=== PATIENT | female | born 1930 | race Caucasian/White ===

== ENCOUNTER 2018-03-11 16:29 | Inpatient (IN) | payer MEDICARE, BC ==
[2018-03-11] MEDS ORDERED: NITROGLYCERIN OINT 1 INCH/GM PACKET TOPICAL STA (17:14)
[2018-03-11] MEDS ORDERED: ASPIRIN 81 MG PO STA (17:14)
--- NOTE | 2018-03-11 17:17 | ED ---
General Adult HPI - General Chief complaint: Chest Pain Stated complaint: Chest Pain Time Seen by Provider: 03/11/18 16:35 Source: patient, RN notes reviewed Mode of arrival: ambulatory Limitations: no limitations - History of Present Illness Initial comments: This is an 87-year-old female who presents emergency department with past medical history significant for hypertension and bypass surgery. Patient states she started having chest pain running today it radiated down into her right arm and then she became short of breath. Patient states the discomfort continues. Patient denies any injury or trauma. Patient denies any recent fever chills or cough. Patient denies any sweating. Patient denies any nausea. Patient denies abdominal pain. Patient denies headache patient denies numbness weakness. Patient denies lightheadedness or dizziness. Patient denies any increased swelling in her legs or calf tenderness. - Related Data Allergies Allergy/AdvReac Type Severity Reaction Status Date / Time No Known Allergies Allergy Verified 03/11/18 16:37 Review of Systems ROS Statement: Those systems with pertinent positive or pertinent negative responses have been documented in the HPI. ROS Other: All systems not noted in ROS Statement are negative. Past Medical History Past Medical History: Chest Pain / Angina, Hyperlipidemia, Hypertension History of Any Multi-Drug Resistant Organisms: None Reported Past Surgical History: Coronary Bypass/CABG Past Psychological History: No Psychological Hx Reported Smoking Status: Never smoker Past Alcohol Use History: None Reported Past Drug Use History: None Reported General Exam - General Exam Comments Initial Comments: GENERAL: Patient is well-developed and well-nourished. Patient is nontoxic and well- hydrated and is in mild distress. ENT: Neck is soft and supple. No significant lymphadenopathy is noted. Oropharynx is clear. Moist mucous membranes. EYES: The sclera were anicteric and conjunctiva were pink and moist. Extraocular movements were intact and pupils were equal round and reactive to light. Eyelids were unremarkable. PULMONARY: Unlabored respirations. Good breath sounds bilaterally. No audible rales rhonchi or wheezing was noted. CARDIOVASCULAR: There is a regular rate and rhythm without any murmurs gallops or rubs. ABDOMEN: Soft and nontender with normal bowel sounds. No palpable organomegaly was noted. There is no palpable pulsatile mass. SKIN: Skin is clear with no lesions or rashes and otherwise unremarkable. NEUROLOGIC: Patient is alert and oriented x3. Cranial nerves II through XII are grossly intact. Motor and sensory are also intact. Normal speech, volume and content. Symmetrical smile. MUSCULOSKELETAL: Normal extremities with adequate strength and full range of motion. No lower extremity swelling or edema. No calf tenderness. LYMPHATICS: No significant lymphadenopathy is noted PSYCHIATRIC: Normal psychiatric evaluation. Normal interpersonal interactions appears functionally intact in deals appropriately with others. No signs of depression. No signs of anxiety. Limitations: no limitations Course Vital Signs 03/11/18 16:34 Temperature 98.3 F Pulse Rate 86 Respiratory 18 Rate Blood Pressure 194/86 O2 Sat by Pulse 95 Oximetry Medical Decision Making - Medical Decision Making EKG shows a sinus rhythm at 67 bpm [place] interval is 216 QRS is under QT intervals 454 QTC is 479. Patient's EKG shows Q waves in inferior leads II, III, and F aVF. Chest x-ray showed no acute abnormalities. I spoke with Dr. Haddad he agreed to admit the patient admitted the patient I started the patient on heparin. I wrote admitting orders and consult cardiology continued heparin and aspirin Nitropaste on the floor. - Lab Data Result diagrams: 03/11/18 16:53 03/11/18 16:53 Lab Results 03/11/18 03/11/18 03/11/18 Range/Units 16:53 16:53 16:53 WBC 8.8 (3.8-10.6) k/uL RBC 5.18 (3.80-5.40) m/uL Hgb 15.4 (11.4-16.0) gm/dL Hct 47.8 H (34.0-46.0) % MCV 92.2 (80.0-100.0) fL MCH 29.7 (25.0-35.0) pg MCHC 32.2 (31.0-37.0) g/dL RDW 13.4 (11.5-15.5) % Plt Count 673 H (150-450) k/uL Neutrophils % 76 % Lymphocytes % 10 % Monocytes % 8 % Eosinophils % 2 % Basophils % 1 % Neutrophils # 6.7 (1.3-7.7) k/uL Lymphocytes # 0.9 L (1.0-4.8) k/uL Monocytes # 0.7 (0-1.0) k/uL Eosinophils # 0.2 (0-0.7) k/uL Basophils # 0.1 (0-0.2) k/uL PT (9.0-12.0) sec INR (<1.2) APTT (22.0-30.0) sec Sodium 143 (137-145) mmol/L Potassium 4.7 (3.5-5.1) mmol/L Chloride 107 (98-107) mmol/L Carbon Dioxide 22 (22-30) mmol/L Anion Gap 14 mmol/L BUN 20 H (7-17) mg/dL Creatinine 0.78 (0.52-1.04) mg/dL Est GFR (CKD-EPI)AfAm 81 (>60 ml/min/1.73 sqM) Est GFR (CKD-EPI)NonAf 70 (>60 ml/min/1.73 sqM) Glucose 163 H (74-99) mg/dL Calcium 9.8 (8.4-10.2) mg/dL Magnesium 1.8 (1.6-2.3) mg/dL Total Bilirubin 0.5 (0.2-1.3) mg/dL AST 25 (14-36) U/L ALT 29 (9-52) U/L Alkaline Phosphatase 98 (38-126) U/L Total Creatine Kinase 74 (30-135) U/L CK-MB (CK-2) 2.1 (0.0-2.4) ng/mL CK-MB (CK-2) Rel Index 2.8 Troponin I 0.067 H* (0.000-0.034) ng/mL Total Protein 7.1 (6.3-8.2) g/dL Albumin 4.3 (3.5-5.0) g/dL 03/11/18 Range/Units 16:53 WBC (3.8-10.6) k/uL RBC (3.80-5.40) m/uL Hgb (11.4-16.0) gm/dL Hct (34.0-46.0) % MCV (80.0-100.0) fL MCH (25.0-35.0) pg MCHC (31.0-37.0) g/dL RDW (11.5-15.5) % Plt Count (150-450) k/uL Neutrophils % % Lymphocytes % % Monocytes % % Eosinophils % % Basophils % % Neutrophils # (1.3-7.7) k/uL Lymphocytes # (1.0-4.8) k/uL Monocytes # (0-1.0) k/uL Eosinophils # (0-0.7) k/uL Basophils # (0-0.2) k/uL PT 10.9 (9.0-12.0) sec INR 1.1 (<1.2) APTT 25.4 (22.0-30.0) sec Sodium (137-145) mmol/L Potassium (3.5-5.1) mmol/L Chloride (98-107) mmol/L Carbon Dioxide (22-30) mmol/L Anion Gap mmol/L BUN (7-17) mg/dL Creatinine (0.52-1.04) mg/dL Est GFR (CKD-EPI)AfAm (>60 ml/min/1.73 sqM) Est GFR (CKD-EPI)NonAf (>60 ml/min/1.73 sqM) Glucose (74-99) mg/dL Calcium (8.4-10.2) mg/dL Magnesium (1.6-2.3) mg/dL Total Bilirubin (0.2-1.3) mg/dL AST (14-36) U/L ALT (9-52) U/L Alkaline Phosphatase (38-126) U/L Total Creatine Kinase (30-135) U/L CK-MB (CK-2) (0.0-2.4) ng/mL CK-MB (CK-2) Rel Index Troponin I (0.000-0.034) ng/mL Total Protein (6.3-8.2) g/dL Albumin (3.5-5.0) g/dL Disposition Clinical Impression: Unstable angina pectoris Disposition: ADMITTED IP TO THIS HOSP Referrals: Kirk Haddad MD [Primary Care Provider] - 1-2 days Time of Disposition: 18:44
[2018-03-11 17:25] LABS: Basophils # (A) 0.1 k/uL (0-0.2); Basophils % (A) 1 %; Eosinophils # (A) 0.2 k/uL (0-0.7); Eosinophils % (A) 2 %; HCT 47.8 % (34.0-46.0); HGB 15.4 gm/dL (11.4-16.0); Lymphocytes # (A) 0.9 k/uL (1.0-4.8); Lymphocytes % (A) 10 %; MCH 29.7 pg (25.0-35.0); MCHC 32.2 g/dL (31.0-37.0); MCV 92.2 fL (80.0-100.0); Mean Platelet Volume 8.1; Monocytes # (A) 0.7 k/uL (0-1.0); Monocytes % (A) 8 %; Neutrophils # (A) 6.7 k/uL (1.3-7.7); Neutrophils % (A) 76 %; Platelet Count 673 k/uL (150-450); RBC 5.18 m/uL (3.80-5.40); RDW 13.4 % (11.5-15.5); WBC 8.8 k/uL (3.8-10.6)
[2018-03-11 17:32] LABS: INR 1.1 (<1.2); Partial Thromboplastin Time 25.4 sec (22.0-30.0); Prothrombin Time 10.9 sec (9.0-12.0)
[2018-03-11 17:34] LABS: Albumin 4.3 g/dL (3.5-5.0); Calcium 9.8 mg/dL (8.4-10.2); Magnesium 1.8 mg/dL (1.6-2.3); Potassium 4.7 mmol/L (3.5-5.1); Total Bilirubin 0.5 mg/dL (0.2-1.3); Total Protein 7.1 g/dL (6.3-8.2)
[2018-03-11 17:51] LABS: Creatine Kinase MB 2.1 ng/mL (0.0-2.4)
[2018-03-11 18:03] LABS: Troponin I 0.067 ng/mL (0.000-0.034)
--- NOTE | 2018-03-11 18:10 | XR ---
EXAMINATION: XR chest 2V DATE AND TIME: 03/11/2018 5:39 PM ORDERING PROVIDER: Sid Peacock MD CLINICAL INDICATION: Chest Pain TECHNIQUE: Frontal and lateral COMPARISON: 08/25/2013 DESCRIPTION: Sternal sutures and mediastinal clips are noted. Moderately enlarged cardiac silhouette, which appears to have increased in the five-year interval. There is moderate obscuration of the pulmonary vasculature by a fine reticular pattern of increased d ensity asymmetrically throughout the lungs. There is no consolidative opacity or silhouetting of the pleural reflections to suggest prominent ate lectasis or focal pneumonia. Pleural spaces are negative. No acute skeletal or soft tissue findings are evident. IMPRESSION: Moderate interstitial phase pulmonary edema, presumably cardiogenic etiology. Moderately enlarged car diac silhouette, having increased in size in the five-year interim.
[2018-03-11] MEDS ORDERED: HEPARIN SODIUM,PORCINE 10,000 UNIT/ML 1 ML VIAL IV ONE (18:42)
[2018-03-11] MEDS ORDERED: NITROGLYCERIN SL TABS 0.4 MG TAB SUBLINGUAL PRN (18:44)
[2018-03-11] MEDS: HEPARIN SODIUM,PORCINE/D5W PMX 25,000 UNIT in DEXTROSE/WATER 1 500ML.BAG IV SCH (19:13)
[2018-03-11 19:52] VITALS: BMI 25.0
[2018-03-11] MEDS ORDERED: ASPIRIN 81 MG PO SCH (21:00)
[2018-03-11] MEDS: METOPROLOL TARTRATE 12.5 MG TAB PO SCH (21:31)
[2018-03-11] MEDS: SENNOSIDES 8.6 MG TAB PO SCH (21:32)
[2018-03-11] MEDS: ATORVASTATIN 40 MG TAB PO SCH (21:32)
[2018-03-11] MEDS: NITROGLYCERIN OINT 1 INCH/GM PACKET TOPICAL SCH (23:38)
[2018-03-12 00:27] LABS: Creatine Kinase MB 5.7 ng/mL (0.0-2.4); Troponin I 1.19 ng/mL (0.000-0.034)
[2018-03-12] MEDS: NITROGLYCERIN OINT 1 INCH/GM PACKET TOPICAL SCH ×4 (05:01→23:30)
[2018-03-12 05:24] LABS: Cholesterol 147 mg/dL (<200); HDL Cholesterol 42 mg/dL (40-60); LDL Cholesterol,Calculated 90 mg/dL (0-99); Triglycerides 74 mg/dL (<150)
[2018-03-12 05:33] LABS: Creatine Kinase MB 6.8 ng/mL (0.0-2.4); Troponin I 1.26 ng/mL (0.000-0.034)
--- NOTE | 2018-03-12 08:10 | P.CRDCN ---
History of Present Illness Consult date: 03/12/18 Requesting physician: Kirk Haddad Consult reason: non-Q-wave RI Chief complaint: Chest pain History of present illness: This is a pleasant 87-year-old female who follows regularly with Dr. Kayla Solitario in the office. She has a known history of coronary artery disease with prior bypass surgery in 2006, subsequent to that she had a heart cath performed in 2011 which revealed a circumflex occlusion, SVG to the diagonal OM were okay, SVG to the PLV occluded, KAM to the LAD was patent at that time. Patient also has history of hypertension, hyperlipidemia. Patient presents to the hospital on this occasion with symptoms of chest discomfort. She states that yesterday she had pain in both of her arms, subsequent to that she developed pressure in her chest. She states that she was mildly short of breath with this, denies any diaphoresis. Her EKG on arrival here showed a normal sinus rhythm with inferior Q waves. Subsequent EKG shows a sinus bradycardia with first-degree AV block and inferior Q waves. Chest x-ray shows moderate interstitial pulmonary edema, presumably cardiogenic etiology. Blood pressure on arrival here was 94/86, heart rate in the 80s, 95% on room air. Blood pressure this morning 150/60 with a heart rate of 50, 95% on room air. Hemoglobin 15.4, hematocrit 47.8, platelet count 673. White blood cell count is normal. Sodium 143, potassium 4.7, BUN 20, creatinine 0.7. Magnesium 1.8. Troponins 0.067, 1.19, 1.26. At the time of my examination this morning, patient states she has some mild discomfort in her chest however much improved from her presentation here. The patient was initiated on IV heparin on arrival here and continues to be on heparin along with aspirin, Plavix 75 mg daily, lisinopril 10 mg daily, metoprolol 25 mg in the morning and 12-1/2 in the evening. She is also on Nitropaste. Past Medical History Past Medical History: Chest Pain / Angina, Hyperlipidemia, Hypertension History of Any Multi-Drug Resistant Organisms: None Reported Past Surgical History: Coronary Bypass/CABG Additional Past Surgical History / Comment(s): CABG 2008 Past Anesthesia/Blood Transfusion Reactions: No Reported Reaction Past Psychological History: No Psychological Hx Reported Smoking Status: Former smoker Past Alcohol Use History: None Reported Additional Past Alcohol Use History / Comment(s): pt's son states she stopped smoking years ago, before he was born. Past Drug Use History: None Reported Medications and Allergies Home Medications Medication Instructions Recorded Confirmed Type Aspirin 81 mg PO HS 03/11/18 03/11/18 History Atorvastatin [Lipitor] 40 mg PO HS 03/11/18 03/11/18 History Clopidogrel [Plavix] 75 mg PO DAILY 03/11/18 03/11/18 History Famotidine [Pepcid] 20 mg PO DAILY 03/11/18 03/11/18 History Furosemide [Lasix] 20 mg PO DAILY 03/11/18 03/11/18 History HYDROcodone/APAP 5-325MG [Martin 5 - 325 mg PO Q4HR PRN 03/11/18 03/11/18 History 5-325] Lisinopril [Zestril] 10 mg PO DAILY 03/11/18 03/11/18 History Metoprolol Tartrate [Lopressor] 12.5 mg PO HS 03/11/18 03/11/18 History Metoprolol Tartrate [Lopressor] 25 mg PO DAILY 03/11/18 03/11/18 History Ranitidine HCl [Zantac] 150 mg PO HS 03/11/18 03/11/18 History Sennosides [Senna] 8.6 mg PO BID 03/11/18 03/11/18 History amLODIPine [Norvasc] 5 mg PO DAILY 03/11/18 03/11/18 History Allergies Allergy/AdvReac Type Severity Reaction Status Date / Time No Known Allergies Allergy Verified 03/11/18 16:37 Physical Exam Vitals: Vital Signs Temp Pulse Pulse Resp BP BP Pulse Ox 03/12/18 04:00 97.3 F L 50 L 18 150/66 95 03/12/18 00:00 97.0 F L 50 L 16 127/63 96 03/11/18 20:00 97.1 F L 64 18 182/88 96 03/11/18 19:49 96 03/11/18 19:02 97.1 F L 64 19 182/88 96 03/11/18 18:14 62 156/69 92 L 03/11/18 17:44 64 18 172/76 93 L 03/11/18 16:34 98.3 F 86 18 194/86 95 Intake and Output 03/11/18 03/12/18 03/12/18 22:59 06:59 14:59 Intake Total 18.5 425.492 Balance 18.5 425.492 Intake: Intake, IV Titration 18.5 125.492 Amount Heparin Sodium,Porcine/ 18.5 125.492 D5w Pmx 25,000 unit In Dextrose/Water 1 500ml. bag @ 12 UNITS/KG/HR 18.5 mls/hr IV .Q24H [facility] Rx#: [id number] Oral 300 Other: Voiding Method Toilet Toilet # Voids 1 Weight 72.3 kg 72.3 kg PHYSICAL EXAMINATION: GENERAL: HEENT: Head is atraumatic, normocephalic. Pupils equal, round. Sclera anicteric. Conjunctiva are clear. Mucous membranes of the mouth are moist. Neck is supple. There is no elevated jugular venous pressure.] bruit is heard. HEART EXAMINATION: Heart S1 S2 1 systolic ejection murmur is heard. CHEST EXAMINATION: Lungs are clear to auscultation and precussion. No chest wall tenderness is noted on palpation or with deep breathing. ABDOMEN: Soft, nontender. Bowel sounds are heard. No organomegaly noted. EXTREMITIES: 2+ peripheral pulses with no evidence of peripheral edema and no calf tenderness noted. NEUROLOGIC patient is awake, alert and oriented -3. . Results 03/11/18 16:53 03/11/18 16:53 Cardiac Enzymes 03/11/18 03/11/18 03/11/18 Range/Units 16:53 16:53 23:44 AST 25 (14-36) U/L CK-MB (CK-2) 2.1 5.7 H* (0.0-2.4) ng/mL Troponin I 0.067 H* 1.190 H* (0.000-0.034) ng/mL 03/12/18 Range/Units 04:40 AST (14-36) U/L CK-MB (CK-2) 6.8 H* (0.0-2.4) ng/mL Troponin I 1.260 H* (0.000-0.034) ng/mL Coagulation 03/11/18 03/11/18 Range/Units 16:53 23:44 PT 10.9 (9.0-12.0) sec APTT 25.4 74.9 H (22.0-30.0) sec Lipids 03/12/18 Range/Units 04:40 Triglycerides 74 (<150) mg/dL Cholesterol 147 (<200) mg/dL HDL Cholesterol 42 (40-60) mg/dL CBC 03/11/18 Range/Units 16:53 WBC 8.8 (3.8-10.6) k/uL RBC 5.18 (3.80-5.40) m/uL Hgb 15.4 (11.4-16.0) gm/dL Hct 47.8 H (34.0-46.0) % Plt Count 673 H (150-450) k/uL Comprehensive Metabolic Panel 03/11/18 Range/Units 16:53 Sodium 143 (137-145) mmol/L Potassium 4.7 (3.5-5.1) mmol/L Chloride 107 (98-107) mmol/L Carbon Dioxide 22 (22-30) mmol/L BUN 20 H (7-17) mg/dL Creatinine 0.78 (0.52-1.04) mg/dL Glucose 163 H (74-99) mg/dL Calcium 9.8 (8.4-10.2) mg/dL AST 25 (14-36) U/L ALT 29 (9-52) U/L Alkaline Phosphatase 98 (38-126) U/L Total Protein 7.1 (6.3-8.2) g/dL Albumin 4.3 (3.5-5.0) g/dL Current Medications Generic Name Dose Route Start Last Admin Trade Name Freq PRN Reason Stop Dose Admin Amlodipine Besylate 5 mg 03/12/18 09:[address] [facility] Aspirin 325 mg 03/12/18 09:[address] [facility] Atorvastatin Calcium 40 mg 03/11/18 21:00 03/11/18 21:32 Lipitor PO 40 mg HS [facility] Administration Clopidogrel Bisulfate 75 mg 03/12/18 09:[address] [facility] Famotidine 20 mg 03/12/18 09:[address] [facility] Furosemide 20 mg 03/12/18 09:[address] [facility] Heparin Sodium/Dextrose 25,000 500 mls @ 18.5 mls/hr 03/11/18 18:45 03/12/18 02:00 unit/ IV Solution IV 12 units/kg/hr .Q24H [facility] 18.5 mls/hr Protocol Titration 12 UNITS/KG/HR Lisinopril 10 mg 03/12/18 09:00 Zestril PO DAILY [facility] Metoprolol Tartrate 12.5 mg 03/11/18 21:00 03/11/18 21:31 Lopressor PO 12.5 mg HS [facility] Administration Metoprolol Tartrate 25 mg 03/12/18 09:00 Lopressor PO DAILY [facility] Nitroglycerin 1 inch 03/12/18 00:00 03/12/18 05:01 Nitro-Bid Oint TOPICAL 1 inch Q6HR [facility] Administration Nitroglycerin 0.4 mg 03/11/18 18:44 Nitrostat SUBLINGUAL Q5M PRN Chest Pain Senna 8.6 mg 03/11/18 21:00 03/11/18 21:32 Senokot PO 8.6 mg BID [facility] Administration Intake and Output 03/11/18 03/12/18 03/12/18 22:59 06:59 14:59 Intake Total 18.5 425.492 Balance 18.5 425.492 Intake: Intake, IV Titration 18.5 125.492 Amount Heparin Sodium,Porcine/ 18.5 125.492 D5w Pmx 25,000 unit In Dextrose/Water 1 500ml. bag @ 12 UNITS/KG/HR 18.5 mls/hr IV .Q24H [facility] Rx#: [id number] Oral 300 Other: Voiding Method Toilet Toilet # Voids 1 Weight 72.3 kg 72.3 kg 03/11/18 16:53 03/11/18 16:53 EKG Interpretations (text) EKG shows a normal sinus rhythm with inferior Q waves Assessment and Plan Plan: Assessment and plan #1 symptoms of bilateral arm discomfort with associated chest heaviness, suggestive of acute coronary syndrome. Troponins 0.067, 1.1, 1.2. EKG shows normal sinus rhythm with inferior Q waves. #2 known history of coronary artery disease with prior bypass surgery in 2006 #3 hypertension #4 hyperlipidemia Plan We will obtain an echocardiogram with Doppler study, continue IV heparin. Decrease aspirin to 81 mg daily. Continue Norvasc, Lipitor, Plavix, Lasix, lisinopril, metoprolol, and Nitropaste. Further recommendations to follow. DNP note has been reviewed, I agree with a documented findings and plan of care. Patient was seen and examined.
[2018-03-12] MEDS ORDERED: SODIUM CHLORIDE 0.9% 1,000 ML in EMPTY BAG 1 BAG IV ONE (08:20)
[2018-03-12] MEDS ORDERED: NITROGLYCERIN SL TABS 0.4 MG TAB SUBLINGUAL PRN (08:20)
[2018-03-12] MEDS ORDERED: ATORVASTATIN 80 MG TAB PO STA (08:20)
[2018-03-12] MEDS ORDERED: ASPIRIN 325 MG TAB PO STA (08:20)
[2018-03-12] MEDS ORDERED: ALPRAZolam 0.5 MG TAB PO PRN (08:20)
[2018-03-12] MEDS ORDERED: ALPRAZolam 0.25 MG TAB PO PRN (08:20)
[2018-03-12 08:47] LABS: Glucose,Whole Blood 93 mg/dL (75-99)
[2018-03-12] MEDS ORDERED: ASPIRIN 325 MG TAB PO SCH (09:00)
--- NOTE | 2018-03-12 09:19 | HP ---
HISTORY AND PHYSICAL DATE OF ADMISSION: 03/11/2018. DATE OF SERVICE: 03/11/2018. The patient seen upon admission to the floor. CHIEF COMPLAINT: Chest pain. HISTORY OF PRESENT ILLNESS: This 87-year-old female presents to the hospital with complaint of chest pain across the chest going to the right arm. The patient said symptoms started after a walk. She is a poor historian. The patient's symptoms are aching in nature. She felt somewhat dizzy, short of breath, was not diaphoretic. She rested and felt somewhat better. She rested waiting for her son to come and pick her up. The patient subsequently was brought in the emergency room. She is not showing any acute EKG changes, but did have some elevation of troponin and thus she is admitted to the hospital. At the time of my evaluation on the floor, the patient was pain free. The patient denied any other symptoms. She did state she was short of breath; however, she did not appear to be tachypneic, lying flat in bed without any difficulty. The patient's pulse ox was adequate. The patient has had no symptoms until today. PAST MEDICAL HISTORY: Significant for coronary artery disease and arthrosclerotic heart disease. She has had a CABG in 2006, details include she had SVG to diagonal, OM was okay, SVG to PLV was occluded, KAM to LAD patent and [place] circumflex was occluded, shows on a cardiac cath on 08/30/2012. Her CABG original was in 2006. The patient does have a history of hypertension and dyslipidemia. No history of diabetes mellitus, lung disease, liver disease, kidney disease. No history of any ulcers, TB hepatitis, does have history of gastroesophageal reflux. No active symptoms. Does have degenerative arthritis. PAST SURGICAL HISTORY: Significant for CABG in 2006 and right hip fracture in 2016. PERSONAL HISTORY: Never smoker. No alcohol. ALLERGIES: None known. MEDICATIONS: Medications at home include: 1. Zantac 150 mg at bedtime. 2. [place] p.r.n., rarely. 3. Aspirin 81 mg daily. 4. Senna 1 b.i.d. 5. Plavix 75 mg daily. 6. Lasix 20 mg daily. 7. Pepcid 20 mg daily. 8. Lipitor 40 mg at bedtime. 9. Norvasc 5 mg daily. 10.Metoprolol 12.5 mg at bedtime. 11.Lisinopril 10 mg daily. 12.Metoprolol 25 mg in the morning. SOCIAL HISTORY: Patient is , lives in a senior citizen complex. FAMILY MEDICAL HISTORY: Two sons, both in good health. REVIEW OF SYSTEMS: NEURO: Denies any headaches, dizziness. No double vision, blurred vision. No symptoms of TIA, syncope, seizure. Some lightheadedness. PSYCH: No anxiety, depression. CARDIAC: Present admission symptoms of chest pain radiating to the right arm. Had some shortness of breath. No cough. No hemoptysis. GI: No nausea, vomiting, heart burn, diarrhea, constipation. : No symptoms of dysuria, hematuria, urgency, frequency. EXTREMITIES: Denies pain, edema. CONSTITUTIONAL: No fever or chills. HEMATOLOGICAL: No anemia or bleeding at any site. SKIN: No rashes. PHYSICAL EXAMINATION: Pleasant female at present in no distress. Vital signs revealed temperature 97.1, pulse 64, respirations 19, blood pressure 182/88, pulse ox 96% on room air. HEENT: Normocephalic. Neck is decreased range of motion. Pupils are reactive. The patient has the left eye divergent chronic. Nostrils are clear. Ears reveal no drainage. Neck reveals no JVD, carotid bruits, no thyromegaly. CHEST EXAMINATION: Clear to auscultation and percussion. CARDIAC: Normal S1, S2 with no gallop. Systolic murmur 2/6 right second intercostal space radiating to the carotids. Systolic murmur 2/6 at the apex. ABDOMEN: Soft. No palpable masses. Bowel sounds are normal. No organomegaly. No abdominal bruits. Extremities reveal trace edema at the ankles. Decreased pedal pulses. NEUROLOGICALLY: Awake, alert, oriented x3 with well-coordinated movements. LABORATORY ASSESSMENT: CBC which showed hemoglobin 15.4, white count 8.8, platelets 673. PT, INR normal. Electrolytes normal. BUN 20, creatinine 0.78. Glucose 163. Random CPK 74. Troponin 0.067. EKG previous inferior wall WA, otherwise nonspecific ST changes. ASSESSMENT: 1. Unstable angina pectoris, rule out subendocardial myocardial infarction. 2. Known coronary artery disease, status post CABG. 3. Hyperlipidemia, on medical treatment. 4. History of gastroesophageal reflux with no symptoms. 5. Thrombocytosis. PLAN: The patient is stable hemodynamically. Continue treatment. Patient is anticoagulated on heparin, aspirin. Continue Plavix. The patient's general condition discussed with the patient. Prognosis guarded. We will obtain a cardiology consult, echocardiogram. The patient at her age may be recommended medical therapy, but will leave that up to the machine i cutter to make a decision on. Prognosis remains guarded. MMODL / IJN: [id number] /
[2018-03-12] MEDS: CLOPIDOGREL 75 MG TAB PO SCH (09:40)
[2018-03-12] MEDS: amLODIPine 5 MG TAB PO SCH (09:40)
[2018-03-12] MEDS: FUROSEMIDE 20 MG TAB PO SCH (09:41)
[2018-03-12] MEDS: SENNOSIDES 8.6 MG TAB PO SCH ×2 (09:41→21:45)
[2018-03-12] MEDS: METOPROLOL TARTRATE 25 MG TAB PO SCH (09:41)
[2018-03-12] MEDS: FAMOTIDINE 20 MG TAB PO SCH (09:41)
[2018-03-12] MEDS: LISINOPRIL 10 MG TAB PO SCH (09:41)
--- NOTE | 2018-03-12 10:45 | US ---
EXAMINATION TYPE: US carotid duplex BILAT DATE OF EXAM: 03/12/2018 COMPARISON: NONE CLINICAL HISTORY: chest pain. Dizziness EXAM MEASUREMENTS: RIGHT: Peak Systolic Velocity (PSV) cm/sec ----- Right CCA: 59.4 ----- Right ICA: 111.3 ----- Right ECA: 106.4 ICA/CCA ratio: 1.9 RIGHT: End Diastole cm/sec ----- Right CCA: 6.3 ----- Right ICA: 4.7 ----- Right ECA: 3.1 LEFT: Peak Systolic Velocity (PSV) cm/sec ----- Left CCA: 81.9 ----- Left ICA: 76.8 ----- Left ECA: 98.4 ICA/CCA ratio: 0.9 LEFT: End Diastole cm/sec ----- Left CCA: 7.8 ----- Left ICA: 15.3 ----- Left ECA: 6.3 VERTEBRALS (direction of flow): Right Vertebral: Antegrade Left Vertebral: Antegrade Rhythm: Normal IMPRESSION: Moderate/severe amount of plaque visualized bilaterally. No elevated velocities. Criteria for Assigning % of Stenosis / Diameter reduction (Estimation based on the indirect measurements of the internal carotid artery velocities (ICA PSV). 1. Normal (no stenosis)=ICA PSV < 125 cm/s: ratio < 2.0: ICA EDV<40 cm/s. 2. Less than 50% stenosis=ICA PSV < 125 cm/s: ratio < 2.0: ICA EDV<40 cm/s. 3. 50 to 69% stenosis=ICA PSV of 125 to 230 cm/s: ration 2.0 ? 4.0: ICA EDV 40-100 cm/s. 4. Greater than 70% stenosis to near occlusion= ICA PSV > 230 cm/s: ratio > 4.0: ICA EDV > 100 cm/s. 5. Near occlusion= ICA PSV velocities may be low or undetectable: variable ratio and ICA EDV. 6. Total occlusion=unable to detect flow.
--- NOTE | 2018-03-12 16:27 | ECHOF ---
Referral Reason:LA MEASUREMENTS -------- HEIGHT: 170.2 cm WEIGHT: 72.1 kg BP: 141/64 RVIDd: 2.6 cm (< 3.3) IVSd: 1.3 cm (0.6 - 1.1) LVIDd: 3.7 cm (3.9 - 5.3) LVPWd: 1.3 cm (0.6 - 1.1) IVSs: 1.7 cm LVIDs: 2.2 cm LVPWs: 1.6 cm LAESV Index (A-L): 54.51 ml/m Ao Diam: 3.3 cm (2.0 - 3.7) AV Cusp: 0.7 cm (1.5 - 2.6) LA Diam: 4.5 cm (2.7 - 3.8) EPSS: 0.7 cm MV E Bautista: 0.81 m/s MV DecT: 287 ms MV A Bautista: 1.09 m/s MV E/A Ratio: 0.74 AV maxP.67 mmHg AV meanP.68 mmHg RAP: 5.00 mmHg RVSP: 55.05 mmHg MV EF SLOPE: 40.79 mm/s (70 - 150) MV EXCURSION: 1.53 cm (> 18.000) FINDINGS -------- Resting bradycardia (HR<60bpm). This was a technically adequate study. The left ventricular size is normal. There is mild concentric left ventricular hypertrophy. Overa ll left ventricular systolic function is normal with, an EF between 55 - 60 %. The right ventricle is normal in size and function. LA is severely dilated >40 ml/m2 The right atrium is normal in size. There is moderate aortic valve sclerosis. There is no evidence of aortic regurgitation. There is moderate aortic stenosis present. Peak/mean gradient across the Aortic Valve is 31.67mmHg / 19.68mm Hg. The mitral valve leaflets are mildly thickened. Mild mitral annular calcification present. Mild-t o-moderate mitral regurgitation is present. Moderate tricuspid regurgitation present. There is mild to moderate pulmonary hypertension. The r ight ventricular systolic pressure, as measured by Doppler, is 55.05mmHg. Trace/mild (physiologic) pulmonic regurgitation. The aortic root size is normal. Normal inferior vena cava with normal inspiratory collapse consistent with estimated right atrial pre ssure of 5 mmHg. There is no pericardial effusion. CONCLUSIONS -------- 1. Resting bradycardia (HR<60bpm). 2. This was a technically adequate study. 3. The left ventricular size is normal. 4. There is mild concentric left ventricular hypertrophy. 5. Overall left ventricular systolic function is normal with, an EF between 55 - 60 %. 6. LA is severely dilated >40 ml/m2 7. There is moderate aortic valve sclerosis. 8. There is moderate aortic stenosis present. 9. Peak/mean gradient across the Aortic Valve is 31.67mmHg / 19.68mmHg. 10. The mitral valve leaflets are mildly thickened. 11. Mild mitral annular calcification present. 12. Layn-sk-nkrjoyce mitral regurgitation is present. 13. Moderate tricuspid regurgitation present. 14. There is mild to moderate pulmonary hypertension. 15. The right ventricular systolic pressure, as measured by Doppler, is 55.05mmHg. 16. Trace/mild (physiologic) pulmonic regurgitation. 17. The aortic root size is normal. 18. There is no pericardial effusion. CHIEF [employer]LINE RADIO OPERATOR: Marcos Giraldo RDCS
[2018-03-12] MEDS: HEPARIN SODIUM,PORCINE/D5W PMX 25,000 UNIT in DEXTROSE/WATER 1 500ML.BAG IV SCH (18:36)
[2018-03-12] MEDS: METOPROLOL TARTRATE 12.5 MG TAB PO SCH (21:44)
[2018-03-12] MEDS: ATORVASTATIN 40 MG TAB PO SCH (21:44)
--- NOTE | 2018-03-12 22:12 | PN ---
PROGRESS NOTE ATTENDING PHYSICIAN: Dr. Lauren Haddad. CHIEF COMPLAINT: Re-evaluation. HISTORY OF PRESENT ILLNESS: 87-year-old female was admitted to the hospital yesterday with complaint of chest discomfort with pain going down the right arm. The patient has some associated dizziness, shortness of breath. The patient following admission has had no further pain. The patient troponins however severely increased indicating of myocardial injury. The patient does not have any ST-T changes. The patient this morning is actually feeling fairly well. Denies any symptoms of chest pain. Mild shortness of breath. Denies any cough, congestion. No dizziness. REVIEW OF SYSTEMS: NEURO: Denies any headaches, dizziness. Psych: No anxiety or depression. Cardiac: No chest pain, angina, palpitations. Respiratory: Mild shortness of breath. No cough. No hemoptysis. GI: No nausea, vomiting, abdominal pain, diarrhea. No bowel movement. no symptoms or dysuria or hematuria. Extremities: No pain. Constitutional: No fever or chills. PHYSICAL EXAMINATION: Pleasant female at present in no distress. Vital signs reveals temperature 97, pulse 61, respirations 18, blood pressure 141/64, pulse ox 97% on room air. HEENT: Normocephalic. NECK: No JVD. No carotid bruits appreciated. CHEST: Examination is clear to auscultation and percussion. CARDIAC: Normal S1, S2 with no gallops. Systolic murmur 2/6, right second intercostal space radiating to the carotids. Also systolic murmur at the apex. ABDOMEN: Soft. No palpable masses. Bowel sounds normal. No organomegaly. No abdominal bruits. EXTREMITIES: Reveal trace edema at the ankles. NEUROLOGIC: Awake, alert, oriented with well-coordinated movements. LABORATORY ASSESSMENT: Was as mentioned above. Troponin up to 1.260. Cholesterol is 147, LDL 90, HDL 42. ASSESSMENT: 1. Acute myocardial infarction, non ST elevated. 2. Known coronary artery disease, status post coronary artery bypass grafting. 3. Hypertension, controlled. 4. Hyperlipidemia on medical therapy. 5. Sinus bradycardia. PLAN: The patient at present is stable. Continue present medical regimen with anticoagulation, aspirin, beta blockers, and statins. The patient also has transderm nitrates. The patient had an echocardiogram which reveals adequate left ventricular function. The patient had carotid duplex studies which reveals significant plaque bilaterally in the carotid arteries with no elevated velocities. The patient is being followed by Cardiology. No concrete plan yet regarding further management of whether for a cardiac cath versus medical management. I believe inclination is more towards medical management as patient's previous cardiac cath in 2011 had shown some progression. The patient's condition was discussed with the patient. MMODL / IJN: [id number] /
--- NOTE | 2018-03-12 23:15 | PN ---
PROGRESS NOTE Mrs. Xiong CAIO / JUNITO: [id number] /
[2018-03-13] MEDS: SENNOSIDES 8.6 MG TAB PO SCH ×2 (05:09→20:28)
[2018-03-13] MEDS: amLODIPine 5 MG TAB PO SCH (06:09)
[2018-03-13] MEDS: CLOPIDOGREL 75 MG TAB PO SCH (06:09)
[2018-03-13] MEDS: NITROGLYCERIN OINT 1 INCH/GM PACKET TOPICAL SCH ×2 (06:09→12:18)
[2018-03-13] MEDS: FAMOTIDINE 20 MG TAB PO SCH (06:09)
[2018-03-13] MEDS: LISINOPRIL 10 MG TAB PO SCH (06:09)
[2018-03-13] MEDS: ASPIRIN 81 MG PO SCH (06:09)
[2018-03-13] MEDS: METOPROLOL TARTRATE 12.5 MG TAB PO SCH (06:09)
[2018-03-13] MEDS: METOPROLOL TARTRATE 25 MG TAB PO SCH (06:10)
[2018-03-13] MEDS ORDERED: IV FLUID CONTINUATION 150 ML IV ONE (07:44)
[2018-03-13] MEDS ORDERED: diphenhydrAMINE 50 MG/ML 1 ML VIAL IVP ONE (07:48)
[2018-03-13] MEDS ORDERED: MIDAZOLAM 2 MG/2 ML VIAL IVP ONE (07:48)
[2018-03-13] MEDS ORDERED: LIDOCAINE 2% INJ 20 MG/ML SQ ONE (08:01)
[2018-03-13] MEDS ORDERED: NITROGLYCERIN SL TABS 0.4 MG TAB SUBLINGUAL ONE ×2 (08:12→08:14)
[2018-03-13] MEDS: NITROGLYCERIN 1000MCG/10ML SYRINGE INTRAARTER ONE ×2 (08:14→08:41)
[2018-03-13] MEDS ORDERED: IOPAMIDOL-370 100ML BTL INJ ONE ×2 (08:29→09:02)
[2018-03-13] MEDS ORDERED: SODIUM CHLORIDE 0.9% 1,000 ML IV ONE (08:32)
[2018-03-13] MEDS ORDERED: BIVALIRUDIN 250 MG in SODIUM CHLORIDE 0.9% 35 ML IV ONE (08:41)
[2018-03-13] MEDS ORDERED: BIVALIRUDIN BOLUS 250 MG/50 ML IV ONE (08:41)
[2018-03-13] MEDS ORDERED: RX INFO: IV CONTRAST WAS GIVEN 1 EACH MISC MISCELLANE PRN (09:06)
[2018-03-13] MEDS ORDERED: MAG HYDROX/AL HYDROX/SIMETH 30 ML CUP PO PRN (09:06)
[2018-03-13] MEDS ORDERED: ZOLPIDEM 5 MG TAB PO PRN (09:06)
[2018-03-13] MEDS ORDERED: NITROGLYCERIN SL TABS 0.4 MG TAB SUBLINGUAL PRN (09:06)
[2018-03-13] MEDS ORDERED: ATROPINE SULFATE 0.1 MG/ML 10ML SYRINGE IV PRN (09:06)
[2018-03-13] MEDS ORDERED: SODIUM CHLORIDE 0.9% 1,000 ML IV SCH (09:15)
--- NOTE | 2018-03-13 09:51 | CC ---
CARDIAC CATHETERIZATION REPORT DATE OF SERVICE: 03/13/2018. PROCEDURES: 1. Left heart catheterization, coronary angiography and selective injection of bypass grafts. 2. PTCA of vein graft to the diagonal branch of LAD. PERFORMED BY: Dr. Radha Solitario. Moderate conscious sedation time was 61 minutes. Patient was administered Versed and Benadryl and oxygen saturation, hemodynamics and EKG were monitored closely. CLINICAL INFORMATION: Mrs. Kathy Xiong is an 87-year-old lady with a history of hypertension, hyperlipidemia and CAD. In 2006, she underwent aortocoronary bypass surgery with KAM to LAD, a vein graft to the diagonal branch and 2 separate vein grafts to the 2 branches of circumflex, obtuse marginal 1 and 2. By 2010 on a cardiac cath, she was known to have an occlusion of the obtuse marginal 1 graft. In 2010, she presented with a non-ST elevation CO and at that time, the diagonal graft, KAM to LAD and vein graft to the obtuse marginal 2 were patent but the vein graft to the obtuse marginal 2 was filled with thrombus. Her culprit lesion was the [place] circumflex secondary smaller branches. She was treated with IV heparin for 48 hours. She has been doing well with medical therapy, but presented with a non-ST elevation CO for 24 to 48 hours ago. After stabilizing her, she was advised coronary angiography after due discussion with the patient and her son. Risks, benefits, options and rationale were explained. PROCEDURE NOTE: Under local anesthesia and strict aseptic precautions, a 6-Mohawk introducer was placed in the right femoral artery. Using a standard left Nancy catheter, I performed selective coronary angiography of the left system. A Kayla catheter was used to perform selective coronary angiography of the vein graft to the diagonal as well as vein graft to the obtuse marginal branch of circumflex which was patent and also the [place] RCA. I used the same Kayla catheter for the KAM injection. An AR2 catheter was used to perform selective coronary angiography of the obtuse marginal 1 graft which was also seen as a stump. Following coronary angiography, I recommended intervention and proceeded to perform in the same setting. At the end of the procedure, an Angio-Seal device was used to secure hemostasis, but the patient was advised FemoStop for 2 hours mainly because of calcified arteries. A pigtail catheter was used to check LV pressure but LV-gram was not performed. CARDIAC CATHETERIZATION FINDINGS: The left ventricular end-diastolic pressure was about 12 mmHg. There was a gradient of about 15 mmHg across the aortic valve based on a pullback catheter. CORONARY ANGIOGRAPHY FINDINGS: LEFT MAIN CORONARY ARTERY: Short patent calcified vessel. No significant disease. It bifurcates into LAD and circumflex. LEFT ANTERIOR DESCENDING CORONARY ARTERY: This gives off a small diagonal branch and a good-sized secondary diagonal branch and then LAD is totally occluded with some competitive flow. A septal branch is also opacified. The diagonal branch has about a 50% lesion, but between the 2 diagonals there is a 70% stenosis. The diagonal branch has a graft attached to it, seen as a stump without much retrograde flow suggesting it may be blocked. LEFT POSTERIOR CIRCUMFLEX CORONARY ARTERY: This vessel is totally occluded and seen as a stump without much antegrade flow. RIGHT CORONARY ARTERY: A selective injection was performed with Kayla catheter. There is some disease at the ostium of 40% to 50%, proximal portion has 90%, mid portion has a 99% with diffuse disease throughout and the distal branches of RCA are patent, but the flow is sluggish and there is extensive disease of the RCA with some bridging collaterals. Angiographic appearance is very similar to the previous one from 2012. SAPHENOUS VEIN GRAFT TO THE DIAGONAL BRANCH OF LAD: This graft is totally occluded and seen as a stump. SAPHENOUS VEIN GRAFT TO THE MAJOR DIAGONAL BRANCH OF LAD: This graft is also totally occluded seen as a stump. SAPHENOUS VEIN GRAFT TO THE OBTUSE MARGINAL BRANCH OF CIRCUMFLEX: This is a second obtuse marginal graft. It is widely patent with good flow. No significant disease is noted in the body of the graft. Distally, the graft is somewhat larger. The opacified segment of the obtuse marginal is widely patent with minor irregularities and no significant disease. LEFT INTERNAL MAMMARY ARTERY GRAFT TO LAD: This graft is widely patent at its origin, course and insertion site and opacified LAD has minor irregularities without significant disease. LEFT VENTRICULOGRAM: This was not performed. FINAL IMPRESSION: This patient has normal filling pressures and a mild gradient of 15 mm across the aortic valve based on a pullback catheter pressures. The LAD is totally occluded in the mid portion after a diagonal branch which has an independent 60% to 70% lesion. There is also a mid LAD lesion prior to the diagonal branch of 70%. The LAD is calcified. The RCA has bridging collaterals with limited antegrade flow. The circumflex is totally occluded in the proximal portion. The vein graft to the diagonal is occluded, appears to be a fresh occlusion. Vein graft to the first obtuse marginal is a chronic occlusion and seen as a stump. The second obtuse marginal graft is widely patent and KAM to LAD is widely patent with good flow. RECOMMENDATION: I advised PCI of the diagonal branch and performed in the same setting. PCI PROCEDURE DETAILS: I used a left bypass guide catheter to cannulate the vein graft to the diagonal. A run- through wire was used to cross the lesion. Wire was able to get across almost to the insertion site of the vein graft. However, multiple inflations were given using a 2.0 and 2.5 balloon without much improvement. It appears that the entire vessel is filled with thrombus and therefore could not be opened up. I gave several inflations with a 2.0 balloon and also 2.5, 15 mm long balloon, but did not make much progress. I decided to treat her medically given the fact that this is going to be a vessel that would be difficult to open and also would probably have a high chance of closure and the [place] diagonal flow was fairly acceptable under the circumstances. I discussed this with the patient and her son. This was therefore unsuccessful PTCA. The patient was administered Angiomax bolus and drip as per protocol and also was on Plavix, which will be continued. I also spoke to Dr. Kirk Haddad regarding the findings and the unsuccessful PTCA. She will be discharged hopefully in the next 24 to 36 hours. MMANANTH / SHANTEN: [id number] /
[2018-03-13] MEDS: FUROSEMIDE 20 MG TAB PO SCH (12:19)
--- NOTE | 2018-03-13 17:10 | PN ---
PROGRESS NOTE Mrs. Xiong has been evaluated by me this morning. I performed a cardiac catheterization which revealed total occlusion of the vein graft to the diagonal. The previously occluded obtuse marginal 1 graft was also noted. The obtuse marginal 2 graft is widely patent and KAM is patent. There is also significant disease of the [place] RCA. I explained to the patient and son that we attempted a diagonal graft PTCA without much success. I gave multiple inflations, but it was unsuccessful. We will pursue medical therapy. I am recommending that we continue current medications. I saw the patient postprocedure. Her right groin is clean and dry. Vital signs are stable. S1-S2 heard normally. Lungs are clear. Abdomen and lower extremity exam is unchanged. Plan is to continue current medications and see how she does. MMODL / IJN: [id number] /
--- NOTE | 2018-03-13 20:13 | P.PN ---
Subjective Progress Note Date: 03/13/18 Principal diagnosis: Acute non-ST elevated microinfarction History present illness: This 87-year-old female was admitted to the hospital with chest pain radiating to the right arm and associated mild shortness of breath. Patient EKG did not reveal any acute ST elevations or changes. The patient enzymes however her elevated suggestive of subendocardial PR. Patient in view of this taken in for cardiac cath. Noted to have occlusion of one of the ECGs. The patient also has diffuse RCA disease. The patient's marlow is open. After the catheterization Dr. Solitario did contact me as suggested medical management. Patient was in later again and findings of the cath and recommendations were discussed with the patient prognosis remains guarded. REVIEW OF SYSTEMS: Neuro: Denies any headaches dizziness. Psych: Denies anxiety depression feels oriented. Cardiac: Denies chest pain and angina palpitations. Respiratory: Denies shortness of breath cough. GI: Denies nausea vomiting or abdominal pain. No diarrhea or constipation, no bowel movement yet. : Denies dysuria hematuria. Extremities: Denies pain. No edema. Skin: Intact. Constitutional: No fever, chills. Objective - Vital Signs Vital signs: Vital Signs Temp 97.7 F 03/13/18 15:10 Pulse 56 L 03/13/18 15:10 Resp 18 03/13/18 15:10 BP 137/63 03/13/18 15:10 Pulse Ox 94 L 03/13/18 15:10 Intake & Output 03/13/18 03/13/18 03/14/18 06:59 18:59 06:59 Intake Total 1370.508 904 Balance 1370.508 904 Weight 72.5 kg 72.5 kg Intake: IV 1200 219 Sodium Chloride 0.9% 1, 1200 000 ml In Empty Bag 1 bag @ 1 ML/KG/HR 72.3 mls/hr IV .[id number] ONE Rx#: [id number] Intake, IV Titration 170.508 325 Amount Heparin Sodium,Porcine/ 170.508 D5w Pmx 25,000 unit In Dextrose/Water 1 500ml. bag @ 12 UNITS/KG/HR 18.5 mls/hr IV .Q[facility]H [facility] Rx#: [id number] Sodium Chloride 0.9% 1, 325 000 ml @ 75 mls/hr IV . [id number] [facility] Rx#:[id number] Oral 360 Other: Voiding Method Toilet # Voids 1 4 PHYSICAL EXAMINATION: Cooperative, at present in no acute distress. HEENT: Neck supple. No JVD. Chest: Clear to auscultation percussion. Cardiac: Normal S1-S2 no gallops systolic murmur 2/6 right second intercostal space and left sternal border and apex. Abdomen: Soft bowel sounds present. Extremities: Trace edema no tenderness Neurologically: Awake, alert, oriented with well-coordinated movements. - Labs CBC & Chem 7: 03/11/18 16:53 03/11/18 16:53 Labs: Abnormal Lab Results - Last 24 Hours (Table) 03/13/18 Range/Units 01:18 APTT 67.1 H (22.0-30.0) sec Assessment and Plan Assessment: ASSESSMENT: 1. [Acute myocardial infarction non-ST elevated]. 2. [Coronary atherosclerosis]. 3. [Status post CABG]. 4. [Hypertension]. 5. [Hyperlipidemia on medical therapy]. PLAN: [Plan continue present medical regimen. Patient's condition discussed with the patient prognosis remains guarded potential discharge home in the next 24-48 hours. Patient be on medical therapy maximized].
[2018-03-13] MEDS: ATORVASTATIN 40 MG TAB PO SCH (20:28)
[2018-03-14 06:19] LABS: Basophils # (A) 0.1 k/uL (0-0.2); Basophils % (A) 1 %; Eosinophils # (A) 0.2 k/uL (0-0.7); Eosinophils % (A) 3 %; HCT 45.7 % (34.0-46.0); HGB 14.6 gm/dL (11.4-16.0); Lymphocytes % (A) 12 %; MCH 29.3 pg (25.0-35.0); MCHC 31.9 g/dL (31.0-37.0); MCV 91.7 fL (80.0-100.0); Mean Platelet Volume 8.4; Monocytes # (A) 0.6 k/uL (0-1.0); Monocytes % (A) 7 %; Neutrophils # (A) 6.3 k/uL (1.3-7.7); Neutrophils % (A) 75 %; Platelet Count 497 k/uL (150-450); RBC 4.99 m/uL (3.80-5.40); RDW 13.7 % (11.5-15.5); WBC 8.5 k/uL (3.8-10.6)
[2018-03-14 06:30] LABS: Anion Gap 10 mmol/L; Blood Urea Nitrogen 10 mg/dL (7-17); Calcium 9.4 mg/dL (8.4-10.2); Carbon Dioxide 26 mmol/L (22-30); Chloride 106 mmol/L (98-107); Glucose 96 mg/dL (74-99); Potassium 4.1 mmol/L (3.5-5.1); Sodium 142 mmol/L (137-145)
[2018-03-14] MEDS: FAMOTIDINE 20 MG TAB PO SCH (08:59)
[2018-03-14] MEDS: METOPROLOL TARTRATE 25 MG TAB PO SCH (08:59)
[2018-03-14] MEDS: FUROSEMIDE 20 MG TAB PO SCH (09:00)
[2018-03-14] MEDS: CLOPIDOGREL 75 MG TAB PO SCH (09:00)
[2018-03-14] MEDS: ASPIRIN 81 MG PO SCH (09:00)
[2018-03-14] MEDS: amLODIPine 5 MG TAB PO SCH (09:00)
[2018-03-14] MEDS: SENNOSIDES 8.6 MG TAB PO SCH ×2 (09:00→19:51)
[2018-03-14] MEDS ORDERED: LISINOPRIL 20 MG TAB PO SCH ×2 (09:00→23:07)
--- NOTE | 2018-03-14 13:39 | P.PN ---
Subjective Progress Note Date: 03/14/18 This is a pleasant 87-year-old female who follows regularly with Dr. Kayla Solitario in the office. She has a known history of coronary artery disease with prior bypass surgery in 2006, subsequent to that she had a heart cath performed in 2011 which revealed a circumflex occlusion, SVG to the diagonal OM were okay, SVG to the PLV occluded, KAM to the LAD was patent at that time. Patient also has history of hypertension, hyperlipidemia. Patient presents to the hospital on this occasion with symptoms of chest discomfort. She states that yesterday she had pain in both of her arms, subsequent to that she developed pressure in her chest. She states that she was mildly short of breath with this, denies any diaphoresis. Her EKG on arrival here showed a normal sinus rhythm with inferior Q waves. Subsequent EKG shows a sinus bradycardia with first-degree AV block and inferior Q waves. Chest x-ray shows moderate interstitial pulmonary edema, presumably cardiogenic etiology. Blood pressure on arrival here was 94/86, heart rate in the 80s, 95% on room air. Blood pressure this morning 150/60 with a heart rate of 50, 95% on room air. Hemoglobin 15.4, hematocrit 47.8, platelet count 673. White blood cell count is normal. Sodium 143, potassium 4.7, BUN 20, creatinine 0.7. Magnesium 1.8. Troponins 0.067, 1.19, 1.26. At the time of my examination this morning, patient states she has some mild discomfort in her chest however much improved from her presentation here. The patient was initiated on IV heparin on arrival here and continues to be on heparin along with aspirin, Plavix 75 mg daily, lisinopril 10 mg daily, metoprolol 25 mg in the morning and 12-1/2 in the evening. She is also on Nitropaste. 03/14/2018 Patient was seen and examined this morning, patient was taken to the cardiac catheterization lab yesterday where she underwent a failed angioplasty of the diagonal branch. She was seen and examined this morning, denied any chest discomfort or breathing overall is stable. Arrangements are being made for her to be transferred back to the extended care facility either this afternoon or tomorrow. Hemodynamically she is stable. Objective - Vital Signs Vital signs: Vital Signs Temp 98 F 03/14/18 08:55 Pulse 68 03/14/18 08:55 Resp 16 03/14/18 08:55 BP 148/68 03/14/18 08:55 Pulse Ox 93 L 03/14/18 08:55 Intake & Output 03/13/18 03/14/18 03/14/18 18:59 06:59 18:59 Intake Total 904 610 240 Balance 904 610 240 Weight 72.5 kg 71.3 kg Intake: IV 219 610 0.9 10 Sodium Chloride 0.9% 1, 600 000 ml As IV .STK-MED ONE Rx#:[id number] Intake, IV Titration 325 Amount Sodium Chloride 0.9% 1, 325 000 ml @ 75 mls/hr IV . [id number] [facility] Rx#:[id number] Oral 360 240 Other: Voiding Method Toilet Toilet Diaper Diaper # Voids 4 - Exam HEENT: Head is atraumatic, normocephalic. Pupils equal, round. Sclera anicteric. Conjunctiva are clear. Mucous membranes of the mouth are moist. Neck is supple. There is no elevated jugular venous pressure.] bruit is heard. HEART EXAMINATION: Heart S1 S2 1 systolic ejection murmur is heard. CHEST EXAMINATION: Lungs are clear to auscultation and precussion. No chest wall tenderness is noted on palpation or with deep breathing. ABDOMEN: Soft, nontender. Bowel sounds are heard. No organomegaly noted. EXTREMITIES: 2+ peripheral pulses with no evidence of peripheral edema and no calf tenderness noted. NEUROLOGIC patient is awake, alert and oriented -3. . - Labs CBC & Chem 7: 03/14/18 05:40 03/14/18 05:40 Labs: Abnormal Lab Results - Last 24 Hours (Table) 03/14/18 Range/Units 05:40 Plt Count 497 H (150-450) k/uL Assessment and Plan Plan: Assessment and plan #1 symptoms of bilateral arm discomfort with associated chest heaviness, suggestive of acute coronary syndrome. Troponins 0.067, 1.1, 1.2. EKG shows normal sinus rhythm with inferior Q waves. #2 known history of coronary artery disease with prior bypass surgery in 2006 #3 hypertension #4 hyperlipidemia Plan Patient was taken to the cardiac catheterization lab where he underwent a failed angioplasty of the diagonal branch. She was seen and examined this morning denies chest pain or difficulty in breathing. Hemodynamically stable. She may be able to be transferred back to the extended care facility later today or tomorrow. Follow-up appointment in the office post discharge. DNP note has been reviewed, I agree with a documented findings and plan of care. Patient was seen and examined.
--- NOTE | 2018-03-14 15:16 | XR ---
EXAMINATION TYPE: XR chest 2V DATE OF EXAM: 03/14/2018 COMPARISON: 03/11/2018 HISTORY: History of COPD and shortness of breath TECHNIQUE: Frontal and lateral views of the chest are obtained. FINDINGS: There is biapical lucency compatible with underlying COPD. Post CABG changes of the chest are noted as well as mild cardiomegaly is seen on the prior. There is diffuse osseous demineralizatio n. Blunting of the left costophrenic angle relates to a trace left pleural effusion. Cholecystectomy clips reside within the right upper quadrant. Evaluation of the vertebral body heights is limited due to osseous demineralization. IMPRESSION: No acute cardiopulmonary process. Similar trace left pleural effusion and pulmonary emph ysema.
--- NOTE | 2018-03-14 16:23 | PN ---
PROGRESS NOTE DATE OF SERVICE: 03/14/2018. HISTORY: Ms. Xiong had an unsuccessful PTCA of vein graft to the diagonal yesterday; she is doing well today, however. The right groin is clean and dry. Pulse good. Vital signs stable. S1 and S2 heard normally. Lungs are clear. Short systolic murmur noted. Lower extremities unchanged. PLAN: Continue current medications. Increase activity. Plan for discharge tomorrow. MMODL / IJN: [id number] /
[2018-03-14 16:59] VITALS: RESP 18
[2018-03-14] MEDS: METOPROLOL TARTRATE 12.5 MG TAB PO SCH (19:51)
[2018-03-14] MEDS: ATORVASTATIN 40 MG TAB PO SCH (19:51)
--- NOTE | 2018-03-15 03:17 | PN ---
PROGRESS NOTE ATTENDING PHYSICIAN: Dr. Lauren Haddad. CHIEF COMPLAINT: Re-evaluation. HISTORY OF PRESENT ILLNESS: 87-year-old female who was admitted to the hospital with a non ST elevated myocardial infarction. She has significant coronary arthrosclerosis. She has had a history of previous CABG and history of hypertensive cardiovascular disease. The patient has underlying hyperlipidemia on medical therapy. She had a cardiac cath yesterday and the recommendation is medical management. The patient does complain of mild shortness of breath. No other symptoms. Denies any chest pain suggestive of angina. REVIEW OF SYSTEMS: NEURO: Denies any headaches or dizziness. Psych some anxiety. Cardiac: No orthopnea. RESPIRATORY: Mild shortness of breath. No cough. No hemoptysis. GI: No nausea, vomiting, abdominal pain, diarrhea. no symptoms of dysuria, hematuria, urgency or frequency. Extremities: No pain or edema. Constitutional: No fever or chills. PHYSICAL EXAMINATION: Elderly female at present, no distress. Vital signs reveal temperature recorded earlier was 97.3, pulse 60, respirations 18, blood pressure 159/70. HEENT: Normocephalic. Neck: No JVD. CHEST: Examination clear to auscultation and percussion. CARDIAC: Normal S1, S2 with no gallops, distant heart sounds S1, S2 with no gallops. Systolic murmur right second intercostal space. 2/6, and apex 2/6 systolic murmur. ABDOMEN: Soft. Bowel sounds present. EXTREMITIES: No edema. No tenderness. NEUROLOGICAL: Awake, alert, oriented x3 with well-coordinated movements. LABORATORY ASSESSMENT: Normal CBC and electrolytes. The patient had a BNP ordered, which is elevated. The patient's chest x-ray is not showing any signs of CHF. ASSESSMENT: 1. Acute myocardial infarction, non ST elevated. 2. Coronary arthrosclerosis. 3. History of coronary artery bypass grafting. 4. Aortic stenosis moderate with mitral regurgitation. 5. Mild dyspnea on exertion. PLAN: The patient at present is stable. Continue present medical regimen. Patient's Lasix decreased to 40 mg. The patient's condition discussed with the patient. Prognosis guarded. The patient is planned for discharge tomorrow. MMODL / IJN: [id number] /
[2018-03-15] MEDS: CLOPIDOGREL 75 MG TAB PO SCH (09:09)
[2018-03-15] MEDS: amLODIPine 5 MG TAB PO SCH (09:09)
[2018-03-15] MEDS: METOPROLOL TARTRATE 25 MG TAB PO SCH (09:09)
[2018-03-15] MEDS: FAMOTIDINE 20 MG TAB PO SCH (09:09)
[2018-03-15] MEDS: FUROSEMIDE 20 MG TAB PO SCH (09:09)
[2018-03-15] MEDS: ASPIRIN 81 MG PO SCH (09:09)
[2018-03-15] MEDS: SENNOSIDES 8.6 MG TAB PO SCH (09:09)
[2018-03-15 15:08] VITALS: BP 160/63; PULSE 50; TEMP 99.3
--- NOTE | 2018-03-15 15:12 | PN ---
PROGRESS NOTE Mrs. Xiong is doing well today. She presented with a [id number] NC, had unsuccessful PTCA of a vein graft to the diagonal. She is doing well. No further symptoms. Right groin is clean and dry. Vital signs are stable. S1-S2 heard normally. Lungs are clear. Abdomen and lower extremity exam is unchanged. Plan is to increase activity and discharge her today and I will see her in the office next week. Discharge instructions regarding activity, medications and diet were given. MMODL / IJN: [id number] /
== END 2018-03-15 17:27 | disposition home health service (06) | DRG 251 ==
LOC: EC 16:29 → OBSVTOIN 18:44 → 6SEL 18:44
PROVIDERS: ADMIT Internal Medicine; ATTEND Internal Medicine
DX: I21.4 Non-ST elevation (NSTEMI) myocardial infarction (principal); I25.810 Atherosclerosis of coronary artery bypass graft(s) without angina pectoris; J81.1 Chronic pulmonary edema; I25.110 Atherosclerotic heart disease of native coronary artery with unstable angina pectoris; E78.5 Hyperlipidemia, unspecified; I08.0 Rheumatic disorders of both mitral and aortic valves; I11.9 Hypertensive heart disease without heart failure; I44.30 Unspecified atrioventricular block; K21.9 Gastro-esophageal reflux disease without esophagitis; Z79.02 Long term (current) use of antithrombotics/antiplatelets; Z79.82 Long term (current) use of aspirin; Z79.899 Other long term (current) drug therapy; Z87.81 Personal history of (healed) traumatic fracture; Z87.891 Personal history of nicotine dependence; Z79.891 Long term (current) use of opiate analgesic; Z53.09 Procedure and treatment not carried out because of other contraindication
CPT/HCPCS: 36415; 71046; 80048; 80053; 80061; 82550; 82553; 83735; 83880; 84484; 85025; 85610; 85730; 93005; 93306; 93459; 93880; 94760; 96365; 96376; 99291

== ENCOUNTER 2018-07-16 03:19 | Inpatient (IN) | payer MEDICARE, BC ==
[2018-07-16] MEDS ORDERED: MORPHINE SULFATE 4 MG/ML SYRINGE IV STA (04:06)
--- NOTE | 2018-07-16 04:07 | ED ---
Chest Pain HPI - General Chief Complaint: Chest Pain Stated Complaint: CHEST PAIN Time Seen by Provider: 07/16/18 03:54 Source: patient, family Mode of arrival: wheelchair Limitations: physical limitation (Patient is extremely hard of hearing and there also appears to be some mild underlying dementia.) - History of Present Illness MD Complaint: chest pain Onset/Timin -: hour(s) Onset: during rest Pain Location: substernal Pain Radiation: RUE, LUE, neck Severity: moderate Quality: other (Unable to characterize) Consistency: constant Improves With: nothing Worsens With: nothing Anginal Symptoms: dyspnea Treatments Prior to Arrival: none - Related Data Home Medications Medication Instructions Recorded Confirmed Atorvastatin [Lipitor] 40 mg PO HS 03/11/18 07/16/18 Clopidogrel [Plavix] 75 mg PO DAILY 03/11/18 07/16/18 Famotidine [Pepcid] 20 mg PO DAILY 03/11/18 07/16/18 Furosemide [Lasix] 20 mg PO DAILY 03/11/18 07/16/18 Metoprolol Tartrate [Lopressor] 37.5 mg PO DAILY 03/11/18 07/16/18 Sennosides [Senna] 8.6 mg PO BID 03/11/18 07/16/18 amLODIPine [Norvasc] 5 mg PO DAILY 03/11/18 07/16/18 Nitroglycerin Sl Tabs [Nitrostat] 0.4 mg SUBLINGUAL Q5M PRN 03/12/18 07/16/18 Previous Rx's Medication Instructions Recorded Aspirin 81 mg PO DAILY chew 03/14/18 Lisinopril [Zestril] 20 mg PO DAILY tab 03/14/18 Metoprolol Tartrate [Lopressor] 12.5 mg PO HS tab 03/14/18 Nitroglycerin Sl Tabs [Nitrostat] 0.4 mg SUBLINGUAL Q5M PRN tab 03/14/18 Allergies Allergy/AdvReac Type Severity Reaction Status Date / Time No Known Allergies Allergy Verified 07/16/18 03:27 Review of Systems ROS Statement: Those systems with pertinent positive or pertinent negative responses have been documented in the HPI. ROS Other: All systems not noted in ROS Statement are negative. Limitations: ROS unobtainable due to patients medical condition (Patient started hearing also has some dementia) Constitutional: Denies: fever Respiratory: Reports: dyspnea. Denies: cough Cardiovascular: Reports: chest pain. Denies: palpitations, orthopnea, edema, syncope Gastrointestinal: Denies: abdominal pain, nausea, vomiting, diarrhea Genitourinary: Denies: dysuria, hematuria Musculoskeletal: Denies: back pain Skin: Denies: rash Neurological: Denies: headache, weakness, numbness EKG Findings - EKG Results: EKG: sinus rhythm (Rate 67 bpm), normal axis, normal ST/T - AK, Pacemaker, Normal: Myocardial infarction: inferior AK (old age indeterminate) Past Medical History Past Medical History: Chest Pain / Angina, Hyperlipidemia, Hypertension History of Any Multi-Drug Resistant Organisms: None Reported Past Surgical History: Coronary Bypass/CABG Additional Past Surgical History / Comment(s): CABG 2009 Past Anesthesia/Blood Transfusion Reactions: No Reported Reaction Past Psychological History: No Psychological Hx Reported Smoking Status: Never smoker Past Alcohol Use History: None Reported Past Drug Use History: None Reported General Exam Limitations: no limitations General appearance: alert, in no apparent distress Head exam: Present: atraumatic, normocephalic Eye exam: Present: normal appearance. Absent: scleral icterus, conjunctival injection ENT exam: Present: mucous membranes dry Neck exam: Present: normal inspection Respiratory exam: Present: normal lung sounds bilaterally. Absent: respiratory distress, wheezes, rales, rhonchi, stridor, accessory muscle use, decreased breath sounds Cardiovascular Exam: Present: regular rate, normal rhythm, systolic murmur ( Crit 3/6 systolic murmur). Absent: diastolic murmur, rubs, gallop GI/Abdominal exam: Present: soft. Absent: distended, tenderness, guarding, rebound, mass Extremities exam: Present: normal inspection, normal capillary refill. Absent: pedal edema, calf tenderness Back exam: Present: normal inspection. Absent: CVA tenderness (R), CVA tenderness (L) Neurological exam: Present: alert Skin exam: Present: warm, dry, intact, normal color. Absent: rash Course Vital Signs 07/16/18 07/16/18 07/16/18 03:23 05:02 06:00 Temperature 98.3 F 97.9 F Pulse Rate 73 58 L 53 L Respiratory 20 17 18 Rate Blood Pressure 165/74 146/67 156/70 O2 Sat by Pulse 96 98 100 Oximetry Chest Pain MDM - MDM This patient is an 87-year-old woman who presents with chest pain and found to have elevation of troponin. Case discussed with Dr. Granados, who is covering for Dr. Boo hunter. Patient be admitted with cardiology consultation. Disposition Clinical Impression: NSTEMI (non-ST elevated myocardial infarction) Disposition: ADMITTED IP TO THIS HOSP Condition: Fair Referrals: Kirk Haddad MD [Primary Care Provider] - 1-2 days
[2018-07-16 04:14] LABS: Basophils # (A) 0.1 k/uL (0-0.2); Basophils % (A) 1 %; Eosinophils # (A) 0.2 k/uL (0-0.7); Eosinophils % (A) 2 %; HCT 51.5 % (34.0-46.0); HGB 16.1 gm/dL (11.4-16.0); Hypochromasia Slight; Lymphocytes # (A) 0.6 k/uL (1.0-4.8); Lymphocytes % (A) 7 %; MCH 28.8 pg (25.0-35.0); MCHC 31.3 g/dL (31.0-37.0); Monocytes # (A) 0.6 k/uL (0-1.0); Monocytes % (A) 6 %; Neutrophils # (A) 7.7 k/uL (1.3-7.7); Neutrophils % (A) 83 %; Platelet Count 601 k/uL (150-450); RDW 13.9 % (11.5-15.5); WBC 9.4 k/uL (3.8-10.6)
[2018-07-16 04:32] LABS: Albumin 4.3 g/dL (3.5-5.0); Magnesium 1.9 mg/dL (1.6-2.3); Potassium 4.9 mmol/L (3.5-5.1); Total Bilirubin 0.8 mg/dL (0.2-1.3); Total Protein 7.5 g/dL (6.3-8.2)
[2018-07-16 04:35] LABS: INR 1.1 (<1.2); Partial Thromboplastin Time 24.9 sec (22.0-30.0); Prothrombin Time 10.8 sec (9.0-12.0)
--- NOTE | 2018-07-16 04:35 | XR ---
EXAM: XR Chest, 1 View CLINICAL HISTORY: chest pain TECHNIQUE: Frontal view of the chest. COMPARISON: 03/14/2018 FINDINGS: Lungs: No focal airspace disease. Pleural space: No large pleural effusion. No pneumothorax. Heart: Stable cardiomegaly with postsurgical changes consistent with prior CABG. Mediastinum: No significant interval change. Bones/joints: No significant interval change. Vasculature: Atherosclerotic calcification of the aortic arch and descending aorta is similar to previous exam. IMPRESSION: Stable cardiomegaly with post-CABG changes. No definite focal airspace disease or acute cardiopulmonary process on this portable exam.
[2018-07-16 04:49] LABS: Creatine Kinase MB 7.9 ng/mL (0.0-2.4)
[2018-07-16 04:50] LABS: Troponin I 0.969 ng/mL (0.000-0.034)
[2018-07-16] MEDS ORDERED: NITROGLYCERIN SL TABS 0.4 MG TAB SUBLINGUAL PRN ×2 (05:34→09:20)
[2018-07-16] MEDS ORDERED: ENOXAPARIN 80 MG/0.8 ML SYRINGE SQ STA (05:39)
[2018-07-16 06:29] VITALS: BMI 25.0
[2018-07-16] MEDS ORDERED: amLODIPine 5 MG TAB PO SCH (09:00)
[2018-07-16] MEDS: FUROSEMIDE 20 MG TAB PO SCH ×2 (09:01→16:35)
[2018-07-16] MEDS: ASPIRIN 81 MG PO SCH (09:02)
[2018-07-16] MEDS: LISINOPRIL 20 MG TAB PO SCH (09:02)
[2018-07-16] MEDS: SENNOSIDES 8.6 MG TAB PO SCH ×2 (09:02→20:38)
[2018-07-16] MEDS: FAMOTIDINE 20 MG TAB PO SCH (09:02)
[2018-07-16] MEDS: METOPROLOL TARTRATE 25 MG TAB PO SCH (09:02)
[2018-07-16] MEDS: CLOPIDOGREL 75 MG TAB PO SCH (09:02)
--- NOTE | 2018-07-16 09:53 | CONS ---
CONSULTATION CHIEF COMPLAINT: Chest pain with elevated troponins Kathy is an 87-year-old lady with history of coronary artery disease, status post CABG, hypertension, dyslipidemia, gastroesophageal reflux disease, who presented to hospital complaining of precordial chest pain. She describes it as moderate intensity chest discomfort with radiation to both her arms. She lives in an assisted-living care facility and has mild dementia. At the time of my evaluation, she appears comfortable at rest and is free of significant symptoms. The patient has known coronary artery disease and has had bypass surgery. Most recently underwent cardiac catheterization in February of 2018 and was advised medical therapy. She has a chronically occluded LAD with a lesion in the diagonal branch, chronically occluded right coronary artery. The vein graft to the diagonal was occluded. KAM to LAD was patent. There was an attempted vein angioplasty of the vein graft to the LAD, but they were unsuccessful and she was advised medical therapy. Her troponin has come back elevated at 0.969. Her EKG shows sinus rhythm with nonspecific ST-T wave changes and evidence of prior anterolateral myocardial infarction. The patient had an echocardiogram in February of 2018 that showed normal LV systolic function with mild aortic stenosis. PAST MEDICAL HISTORY: Significant for coronary artery disease, status post CABG, hypertension, dyslipidemia, recent cardiac catheterization and successful angioplasty. MEDICATIONS: At home included Norvasc 5 q. daily, senna, sublingual nitroglycerin, Lopressor, Zestril 20 q. daily, Lasix 20 daily, Pepcid 20 daily, Plavix 75 daily Lipitor 40 and aspirin. ALLERGIES: There are no known drug allergies. FAMILY HISTORY: Negative for premature coronary artery disease. SOCIAL HISTORY: Negative for smoking, EtOH abuse, or drug abuse. REVIEW OF SYSTEMS: HEENT is unremarkable cardiac as described above. RESPIRATORY: Negative. GI negative. negative. ALLERGY/IMMUNOLOGY: Negative. MUSCULOSKELETAL: Significant for arthritis psychosocial negative. ENDOCRINE: Negative negative constitutional negative. WIRE TINNER significant for mild dementia. EXAM: The patient is comfortable at rest. Afebrile. Heart rate is 60 beats per minute. Blood pressure is 166/71, respiratory Chest exam reveals good air entry bilaterally heart exam reveals first and second heart sounds. Ejection systolic murmur in the aortic area. Abdomen is soft, nontender. Exam of extremities did not reveal any edema. Peripheral pulses are felt WIRE TINNER exam did not reveal focal neurological deficits. LABS: 1. Shows an elevated troponin. EKG shows nonspecific ST-T wave changes. ASSESSMENT: 1. Acute non ST-segment elevation myocardial infarction. 2. Uncontrolled hypertension. 3. Dyslipidemia. 4. Coronary artery disease, status post coronary artery bypass grafting. PLAN: Given the recent cardiac catheterization and inability to perform angioplasty and I advised her on medical therapy at this time. I am going to add nitrates to her regimen and I will increase the dose of Norvasc to 10 mg daily for optimal blood pressure control. We will obtain an instructed for optimal blood pressure control. I am not repeating an echo on her. She had an echo recently. MMODL / IJN: [id number] /
--- NOTE | 2018-07-16 11:29 | HP ---
HISTORY AND PHYSICAL Patient of Dr. Haddad. DATE OF SERVICE: July 16, 2018 She is 87 years old. DATA: Height: 5 feet 6 inches. Weight: 70.5 kg, BSA 1.80 meter square, BMI 25.1 kilogram/meter square. ALLERGIES: Allergy is unknown. CHIEF COMPLAINT: She is a patient of Dr. Haddad as mentioned above and she is complaining with severe chest pain apparently started yesterday and continued across the chest from side to side. 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 The pain started about 10 hours ago and prior to the presentation in the ER was constant. It does not have radiation to the neck, but she was short of breath. Her son was at bedside, stated that she called him at his home. She lives alone in assisted living, but she called him and told him she was short of breath. HISTORY OF PRESENT ILLNESS: At this time, the patient's history of present illness as mentioned above, she presented with pain in the chest and was about 10 hour prior to the presentation to the emergency room. At that time she had also past history of underlying coronary artery bypass graft x3. She was dyspneic and she had the pain as well. MEDICATIONS: Her medications are Lipitor 40 mg at bedtime and she has as well clopidogrel, Plavix, 75 mg daily and she takes Pepcid 20 mg daily, furosemide 20 mg daily and metoprolol tartrate, she take 37.5 mg daily. She is also on amlodipine 5 mg and nitroglycerin was sublingual. She takes stool softener, Senna 8.6 mg twice a day. She also has been on aspirin, lisinopril, and metoprolol in the past. ALLERGIES: Her allergy is unknown. REVIEW OF THE SYSTEMS: On reviewing of the systems, neuropsychiatry was negative, but she had a bilateral hip surgery and could not really navigate, but each time she had minimal exertion she gets the chest pain and with this progression, she called her son and brought her to the hospital. She denied any fever or cough or chills and she has no nausea. On the reviewing of the system, denies a fever and respiratory no cough or dyspnea. On the cardiovascular, positive for chest pain and orthopnea, with minimal exertion, paroxysmal nocturnal dyspnea, but no syncope and she had mild trace edema of the lower extremities. The GI: No nausea, vomiting, or diarrhea. : No dysuria or hematuria. Musculoskeletal: hip surgery bilaterally, but she could not walk appropriately. The EKG was done and she has sinus rhythm and she has also history of MS and pacemaker and history of inferior myocardial infarction in the past. She has hyperlipidemia, history of hypertension and she never smoked in her life as well and she had a coronary artery bypass graft. PHYSICAL EXAMINATION: On physical examination, patient's vital signs were stable and her temperature was 98.3, and , and her pulse rate was 73 to 58 to 53, and she has respiratory rate 20 to 17 to 18. Blood pressure was 165/74 and followed by 146/67 and 156/70 with the oxygen saturation 96, 98 and 100. On the physical examination, an 87-year-old white female, , and she has chest pain across her shoulder and found that her troponin was elevated and at that time they called me and I did see her as well and the examination is that the head was normocephalic, atraumatic. 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 Oropharynx is normal with natural teeth. The neck was supple. No JVD. No thyromegaly. No lymphadenopathy. She had a chest scar midline from the previous bypass graft x3 and the heart was regular sinus rhythm. The abdomen is soft, nontender, positive bowel sounds. Extremities, she had trace edema bilaterally. With the current finding, the patient had non-STEMI myocardial infarction and with the chest x-ray indicating that she had cardiomegaly and post CABG. No definite airspace disease. Her EKG on admission showed that she had sinus rhythm with first-degree AV block with the anterolateral infarction in the past with the abnormal EKG. She has also been seen by Dr. Roberson, Cardiology with the history of hypertension, dyslipidemia, recent cardiac catheterization with successful angioplasty. His assessment that she had acute non STEMI myocardial infarction with the myocardial infarction, uncontrolled hypertension, dyslipidemia and coronary artery disease. He did increase the Norvasc to 10 mg. Patient currently stable and we will be monitoring her cardiac as well as adjusted her medication. MMODL / IJN: [id number] /
[2018-07-16] MEDS: ISOSORBIDE MONONITRATE ER 60 MG TAB.ER.24H PO SCH (12:14)
[2018-07-16] MEDS ORDERED: amLODIPine 10 MG TAB PO SCH (12:15)
[2018-07-16] MEDS ORDERED: amLODIPine 5 MG TAB PO ONE (12:15)
[2018-07-16 13:00] LABS: Creatine Kinase MB 10.6 ng/mL (0.0-2.4)
--- NOTE | 2018-07-16 13:09 | ECHOF ---
Referral Reason:nstemi MEASUREMENTS -------- HEIGHT: 167.6 cm WEIGHT: 70.3 kg BP: 152/67 RVIDd: 2.5 cm (< 3.3) IVSd: 1.1 cm (0.6 - 1.1) LVIDd: 3.7 cm (3.9 - 5.3) LVPWd: 1.1 cm (0.6 - 1.1) IVSs: 1.4 cm LVIDs: 2.2 cm LVPWs: 1.4 cm LAESV Index (A-L): 46.77 ml/m Ao Diam: 3.3 cm (2.0 - 3.7) AV Cusp: 0.8 cm (1.5 - 2.6) LA Diam: 4.2 cm (2.7 - 3.8) EPSS: 0.6 cm MV E Bautista: 0.89 m/s MV DecT: 217 ms MV A Bautista: 1.25 m/s MV E/A Ratio: 0.71 AV maxP.74 mmHg AV meanP.14 mmHg RAP: 5.00 mmHg RVSP: 44.10 mmHg MV EF SLOPE: 37.41 mm/s (70 - 150) MV EXCURSION: 1.73 cm (> 18.000) FINDINGS -------- Sinus rhythm. Resting bradycardia (HR<60bpm). This was a technically adequate study. The left ventricular size is normal. There is borderline concentric left ventricular hypertrophy. Overall left ventricular systolic function is normal with, an EF between 55 - 60 %. The right ventricle is normal in size and function. LA is severely dilated >40 ml/m2 RA appears enlarged. Aortic valve is trileaflet and is moderately thickened. There is no evidence of aortic regurgitatio n. There is moderate aortic stenosis present. Peak/mean gradient across the Aortic Valve is 42.74 mmHg / 24.14mmHg. Mild mitral annular calcification present. [id number] mitral regurgitation is present. Mild tricuspid regurgitation present. There is mild to moderate pulmonary hypertension. The right ventricular systolic pressure, as measured by Doppler, is 44.10mmHg. Trace/mild (physiologic) pulmonic regurgitation. The aortic root size is normal. Normal inferior vena cava with normal inspiratory collapse consistent with estimated right atrial pre ssure of 5 mmHg. There is no pericardial effusion. CONCLUSIONS -------- 1. Sinus rhythm. 2. Resting bradycardia (HR<60bpm). 3. This was a technically adequate study. 4. The left ventricular size is normal. 5. There is borderline concentric left ventricular hypertrophy. 6. Overall left ventricular systolic function is normal with, an EF between 55 - 60 %. 7. LA is severely dilated >40 ml/m2 8. RA appears enlarged. 9. Aortic valve is trileaflet and is moderately thickened. 10. There is moderate aortic stenosis present. 11. Peak/mean gradient across the Aortic Valve is 42.74mmHg / 24.14mmHg. 12. Mild mitral annular calcification present. 13. [id number] mitral regurgitation is present. 14. Mild tricuspid regurgitation present. 15. There is mild to moderate pulmonary hypertension. 16. Trace/mild (physiologic) pulmonic regurgitation. 17. The aortic root size is normal. 18. There is no pericardial effusion. TRIM SAWYER: Marcos Giraldo RDCS
[2018-07-16 13:12] LABS: Troponin I 2.85 ng/mL (0.000-0.034)
[2018-07-16 17:59] LABS: Creatine Kinase MB 6.7 ng/mL (0.0-2.4)
[2018-07-16 18:00] LABS: Troponin I 3.74 ng/mL (0.000-0.034)
[2018-07-16] MEDS: METOPROLOL TARTRATE 12.5 MG TAB PO SCH (20:38)
[2018-07-16] MEDS: ATORVASTATIN 40 MG TAB PO SCH (20:38)
[2018-07-17 00:53] LABS: Cholesterol 181 mg/dL (<200); HDL Cholesterol 48 mg/dL (40-60); LDL Cholesterol,Calculated 112 mg/dL (0-99); Triglycerides 106 mg/dL (<150)
[2018-07-17] MEDS: FUROSEMIDE 20 MG TAB PO SCH ×3 (08:48→16:11)
[2018-07-17] MEDS: ASPIRIN 81 MG PO SCH (08:49)
[2018-07-17] MEDS: ISOSORBIDE MONONITRATE ER 60 MG TAB.ER.24H PO SCH (08:49)
[2018-07-17] MEDS: FAMOTIDINE 20 MG TAB PO SCH (08:49)
[2018-07-17] MEDS: SENNOSIDES 8.6 MG TAB PO SCH ×2 (08:49→19:59)
[2018-07-17] MEDS: amLODIPine 10 MG TAB PO SCH (08:49)
[2018-07-17] MEDS: LISINOPRIL 20 MG TAB PO SCH (08:50)
[2018-07-17] MEDS: METOPROLOL TARTRATE 25 MG TAB PO SCH (08:51)
[2018-07-17] MEDS: CLOPIDOGREL 75 MG TAB PO SCH (08:51)
[2018-07-17] MEDS ORDERED: ASPIRIN 325 MG TAB PO SCH (09:00)
--- NOTE | 2018-07-17 12:11 | P.PN ---
Subjective Progress Note Date: 07/17/18 This is an 87-year-old female with history of coronary artery disease and prior bypass surgery, hypertension, hyperlipidemia, GERD, who presented to the hospital with non-wave myocardial infarction, medical therapy advised. Patient has known disease and has had bypass surgery, most recently she underwent a cardiac catheterization in February 2018 and was advised medical therapy. She has a chronically occluded LAD with a lesion in the diagonal branch, chronically occluded right coronary artery. The vein graft to the diagonal was occluded. KAM to the LAD was patent. There was an attempt made at angioplasty with vein graft to the LAD which was unsuccessful. Patient was seen and examined this morning, denies any chest discomfort, and she has been up and ambulating the length of the hallways of this morning. Echocardiogram with Doppler study was performed which revealed an ejection fraction of 55-60%. Blood pressure 134/60 heart rate in the 60s. 96% on room air. Objective - Vital Signs Vital signs: Vital Signs Temp 97.5 F L 07/17/18 08:59 Pulse 65 07/17/18 08:59 Resp 18 07/17/18 08:59 BP 137/65 07/17/18 08:59 Pulse Ox 96 07/17/18 08:59 Intake & Output 07/16/18 07/17/18 07/17/18 18:59 06:59 18:59 Intake Total 240 Output Total 300 800 Balance -300 -560 Weight 68.9 kg Intake: Oral 240 Output: Urine 300 800 Other: Voiding Method Toilet Toilet Toilet # Voids 1 2 - Exam PHYSICAL EXAMINATION: GENERAL: 87-year-old female in no acute distress at the time of my examination HEENT: Head is atraumatic, normocephalic. Pupils equal, round. Sclera anicteric. Conjunctiva are clear. Mucous membranes of the mouth are moist. Neck is supple. There is no elevated jugular venous pressure.No carotid bruit is heard. HEART EXAMINATION: Her S1 and S2 systolic ejection murmur is heard. CHEST EXAMNATION:[ Lungs are clear to auscultation and precussion. No chest wall tenderness is noted on palpation or with deep brathing.] ADOMEN: [ Soft, nontender. Bowel sounds are heard. No organomegay noted]. EXTRMITIES:[ 2+ peripheral pulses with no evidence of peripheral edema and no calf tendernes noted]. NEUOLOGIC [patient is awake, alert and orientd X3] . - Labs CBC & Chem 7: 07/16/18 03:40 07/16/18 03:40 Labs: Abnormal Lab Results - Last 24 Hours (Table) 07/16/18 07/16/18 07/16/18 Range/Units 03:40 11:07 17:22 Total Creatine Kinase 152 H (30-135) U/L CK-MB (CK-2) 10.6 H 6.7 H (0.0-2.4) ng/mL Troponin I 2.850 H* 3.740 H* (0.000-0.034) ng/mL LDL Cholesterol, Calc 112 H (0-99) mg/dL Assessment and Plan Plan: Assessment and plan #1 non-ST elevation TN maximal medical therapy advised #2 known history of coronary artery disease with prior bypass surgery, most recent cardiac catheterization performed in February of this year which patient also underwent attempted angioplasty of the vein graft to the LAD which was unsuccessful. Medical therapy advised at that time #3 hyperlipidemia #4 uncontrolled hypertension, blood pressure this morning 136/64. Plan Cardiology's perspective, patient may be able to be discharged home once cleared by primary. We'll make her a follow-up appointment in the office post discharge. DNP note has been reviewed, I agree with a documented findings and plan of care. Patient was seen and examined.
--- NOTE | 2018-07-17 16:57 | PN ---
PROGRESS NOTE I am covering for Dr. Kirk Haddad in his temporary absence. DATE OF SERVICE: 07/17/2018. DATA: Height is 5 feet 6 inches, weight 68.9 kg and BSA 1.78 m2, BMI 24.5 kg/m2. ALLERGIES: UNKNOWN. This patient was admitted with non-STEMI. She had previous cardiac catheterization, with severe recurrent occlusion of two of the bypasses. She had a total of 3 bypasses in the past. On this admission she was found to have a troponin that started at 0.969 and increased to 2.850, and then increased to 3.740, indicating the presence of non- STEMI. Her troponin was 1240 as well. Her other laboratory values were essentially negative. Patient was seen and evaluated by Cardiology, Dr. Sawyer Roberson, and her blood pressure was elevated and adjusted. She was on clopidogrel 75 mg once daily and they started her on aspirin 81 mg. She is on Lovenox mg once a day for DVT prophylaxis. PHYSICAL EXAMINATION TODAY: The patient stated that she has no chest pain, no pain anywhere; however, her nurse Deya IGLESIAS stated that she was "off, confused slightly." I did not see that personally when I talked to the patient. Her temperature was 97.7 and pulse rate 98, respiratory rate 16, blood pressure controlled 123/59 with a mean 80 and pulse ox 96%. HEENT: The head was normocephalic, atraumatic. Her left eye is squinting and deviating to the temporal area, but she can see with her eyes. She stated that since her childhood she has had this problem. Neck was supple. No JVD. No thyromegaly. No lymphadenopathy. Trachea midline. The chest was clear to auscultation and percussion. The heart was regular sinus rhythm. Her EKG was done which showed sinus rhythm, first-degree AV block, and she has anterolateral infarction which is age undetermined. She currently has subendocardial ischemia or non-Q RI or non-STEMI. EXTREMITIES: No edema. Positive pulses. ASSESSMENT: 1. Coronary artery disease, atherosclerotic heart disease. 2. History of coronary artery bypass graft. Her echocardiogram indicated that she has sinus rhythm and her left atrium is severely dilated, 40%, and the ejection fraction is 55% to 60%. She has moderate aortic stenosis. Peak was 42.74 mmHg and the gradient 24.14 mmHg. She has mild to moderate mitral regurgitation, mild tricuspid regurgitation and mild pulmonary hypertension. She has physiologic pulmonary regurgitation. No pericardial effusion. Patient was seen in consultation by Dr. Sawyer Roberson, the automobile assembler, and he stated that she had troponin and EKG non-specific changes, acute non-STEMI with elevated myocardial infarction. 3. Uncontrolled hypertension. Currently her hypertension has been well controlled. 4. Dyslipidemia. 5. Coronary artery disease, status post coronary artery bypass graft. She is free of pain but still her troponin is elevated; as mentioned today, her last troponin was yesterday at 3.740. Patient will continue to be monitored. We will see what further treatment is needed. Patient is stable, with no chest pain; however, she has the elevated troponin. MMODL / IJN: [id number] /
[2018-07-17] MEDS: ATORVASTATIN 40 MG TAB PO SCH (19:59)
[2018-07-17] MEDS: METOPROLOL TARTRATE 12.5 MG TAB PO SCH (22:30)
[2018-07-18 07:02] LABS: Basophils # (A) 0.1 k/uL (0-0.2); Basophils % (A) 1 %; Eosinophils # (A) 0.5 k/uL (0-0.7); Eosinophils % (A) 7 %; HCT 48.3 % (34.0-46.0); HGB 14.6 gm/dL (11.4-16.0); Hypochromasia Slight; Lymphocytes # (A) 1.1 k/uL (1.0-4.8); Lymphocytes % (A) 14 %; MCH 28.3 pg (25.0-35.0); MCHC 30.2 g/dL (31.0-37.0); MCV 93.7 fL (80.0-100.0); Mean Platelet Volume 8.3; Monocytes # (A) 0.6 k/uL (0-1.0); Monocytes % (A) 8 %; Neutrophils # (A) 5.3 k/uL (1.3-7.7); Neutrophils % (A) 68 %; Platelet Count 533 k/uL (150-450); RBC 5.15 m/uL (3.80-5.40); RDW 13.9 % (11.5-15.5); WBC 7.9 k/uL (3.8-10.6)
[2018-07-18 07:22] LABS: Calcium 9.7 mg/dL (8.4-10.2); Potassium 4.4 mmol/L (3.5-5.1)
[2018-07-18] MEDS: ISOSORBIDE MONONITRATE ER 60 MG TAB.ER.24H PO SCH (10:22)
[2018-07-18] MEDS: FUROSEMIDE 20 MG TAB PO SCH ×2 (10:22→17:47)
[2018-07-18] MEDS: FAMOTIDINE 20 MG TAB PO SCH (10:22)
[2018-07-18] MEDS: ASPIRIN 81 MG PO SCH (10:22)
[2018-07-18] MEDS: CLOPIDOGREL 75 MG TAB PO SCH (10:22)
[2018-07-18] MEDS: METOPROLOL TARTRATE 12.5 MG TAB PO SCH ×2 (10:23→19:55)
[2018-07-18] MEDS: METOPROLOL TARTRATE 25 MG TAB PO SCH (10:23)
[2018-07-18] MEDS: amLODIPine 10 MG TAB PO SCH (10:23)
[2018-07-18] MEDS: LISINOPRIL 20 MG TAB PO SCH (10:24)
[2018-07-18] MEDS: SENNOSIDES 8.6 MG TAB PO SCH ×2 (10:24→19:52)
--- NOTE | 2018-07-18 11:14 | P.PN ---
Subjective Progress Note Date: 07/18/18 This is an 87-year-old female with history of coronary artery disease and prior bypass surgery, hypertension, hyperlipidemia, GERD, who presented to the hospital with non-wave myocardial infarction, medical therapy advised. Patient has known disease and has had bypass surgery, most recently she underwent a cardiac catheterization in February 2018 and was advised medical therapy. She has a chronically occluded LAD with a lesion in the diagonal branch, chronically occluded right coronary artery. The vein graft to the diagonal was occluded. KAM to the LAD was patent. There was an attempt made at angioplasty with vein graft to the LAD which was unsuccessful. Patient was seen and examined this morning, denies any chest discomfort, and she has been up and ambulating the length of the hallways of this morning. Echocardiogram with Doppler study was performed which revealed an ejection fraction of 55-60%. Blood pressure 134/60 heart rate in the 60s. 96% on room air. 07/18/2018 Patient seen and examined this morning, she's been up ambulating in the [facility] with physical therapy this morning. Denies any chest pain in her breathing overall is been stable. Blood pressure 122/50 with a heart rate in the 60s, 92 % on room air. Objective - Vital Signs Vital signs: Vital Signs Temp 97.9 F 07/18/18 04:00 Pulse 57 L 07/18/18 04:00 Resp 18 07/18/18 04:00 BP 122/59 07/18/18 04:00 Pulse Ox 92 L 07/18/18 04:00 Intake & Output 07/17/18 07/18/18 07/18/18 18:59 06:59 18:59 Intake Total 720 600 240 Output Total 800 Balance -80 600 240 Weight 68.5 kg Intake: Oral 720 600 240 Output: Urine 800 Other: Voiding Method Toilet Toilet # Voids 1 - Exam PHYSICAL EXAMINATION: GENERAL: 87-year-old female in no acute distress at the time of my examination HEENT: Head is atraumatic, normocephalic. Pupils equal, round. Sclera anicteric. Conjunctiva are clear. Mucous membranes of the mouth are moist. Neck is supple. There is no elevated jugular venous pressure.No carotid bruit is heard. HEART EXAMINATION: Her S1 and S2 systolic ejection murmur is heard. CHEST EXAMNATION:[ Lungs are clear to auscultation and precussion. No chest wall tenderness is noted on palpation or with deep brathing.] ADOMEN: [ Soft, nontender. Bowel sounds are heard. No organomegay noted]. EXTRMITIES:[ 2+ peripheral pulses with no evidence of peripheral edema and no calf tendernes noted]. NEUOLOGIC [patient is awake, alert and orientd X3] . - Labs CBC & Chem 7: 07/18/18 06:38 07/18/18 06:38 Labs: Abnormal Lab Results - Last 24 Hours (Table) 07/18/18 07/18/18 07/18/18 Range/Units 06:38 06:38 06:38 Hct 48.3 H (34.0-46.0) % MCHC 30.2 L (31.0-37.0) g/dL Plt Count 533 H (150-450) k/uL Chloride 108 H (98-107) mmol/L BUN 21 H (7-17) mg/dL Glucose 105 H (74-99) mg/dL Troponin I 1.200 H* (0.000-0.034) ng/mL Assessment and Plan Plan: Assessment and plan #1 non-ST elevation ID maximal medical therapy advised #2 known history of coronary artery disease with prior bypass surgery, most recent cardiac catheterization performed in February of this year which patient also underwent attempted angioplasty of the vein graft to the LAD which was unsuccessful. Medical therapy advised at that time #3 hyperlipidemia #4 uncontrolled hypertension, blood pressure this morning 136/64. Plan Cardiology's perspective, patient may be able to be discharged home once cleared by primary. We'll make her a follow-up appointment in the office post discharge. DNP note has been reviewed, I agree with a documented findings and plan of care. Patient was seen and examined.
--- NOTE | 2018-07-18 18:40 | PN ---
PROGRESS NOTE I am covering for Dr. Kirk Haddad. DATE OF SERVICE: 07/18/2018 NEW DATA: Height is 5 feet 6 inches, weight 68.5 kg, BSA 1.78 m2, BMI 24.4 kg/m2. ALLERGIES: UNKNOWN. The patient is an 87-year-old white female who presented to the hospital with chest pain across her chest. Initially her troponin was mildly elevated. It was 0.969 followed by 2.850 followed by 3.740 and now it is coming down and is 1.200. Initially her NT-pro-BNP was elevated at 1240. However, today her laboratory indicates it is down to 510. Patient today did not have any symptoms. Shortness of breath is gone. She started to walk, not fully walking. Her heart rate dropped to the upper 40s. Her laboratory today indicates sodium 141, potassium 4.4, chloride 108, carbon dioxide 26. Her BUN is 21, creatinine 0.89 with the estimated glomerular filtration rate of 59. Her blood sugar is 105 and her calcium 9.7. Her CK-MB was also elevated accordingly with the understanding of her problem. The diagnosis was changed with the [id number] ID and advised maximum therapy by Dr. Sawyer Roberson. She has well-known history of coronary artery disease and prior bypass graft and recent cardiac catheterization performed in February of this year. She underwent attempted angioplasty of the vein graft to the LAD, which was unsuccessful. She is undergoing continuation of the medical therapy at this time. She has hyperlipidemia and uncontrolled hypertension, which is today in the morning 136/64. They cleared her for discharge today; however, her troponin was still elevated, as mentioned, and the patient did not have a full evaluation of the ambulation before discharge. Her symptoms when she started were being short of breath with minimal exertion, even to go to the bathroom. Current pulse rate is 49, blood pressure 149/67, saturation on room air 93. She had a standby 2 L nasal cannula. HEENT: The head was normocephalic and atraumatic. Pupils reactive. However, she had left eye strabismus and squinting to the temporal side of the eye. She has had this since childhood and it was not corrected. Oropharynx was negative. She had natural teeth. The neck was supple. No lymphadenopathy. No thyromegaly. Trachea midline. Chest was clear to auscultation and percussion. No wheezes or rhonchi. The heart was regular sinus rhythm at this time. Abdomen was soft, nontender. Positive bowel sounds. EXTREMITIES: No edema and positive pulses. ASSESSMENT: Acute kmk-ZY-fwsiusk-elevation myocardial infarction with progressive elevation of the troponin. Also her EKG showed sinus rhythm with first-degree AV block and old history of anterolateral infarction, age undetermined. Patient today will be ambulated as tolerated and subsequently tomorrow, if there is no further setback or abnormalities, then we will be planning for discharge. Today her bradycardia was present at 49, and patient at that time was not symptomatic. MMODL / IJN: [id number] /
[2018-07-18] MEDS: ATORVASTATIN 40 MG TAB PO SCH (19:52)
[2018-07-19 04:27] VITALS: RESP 16
[2018-07-19] MEDS: ISOSORBIDE MONONITRATE ER 60 MG TAB.ER.24H PO SCH (08:43)
[2018-07-19] MEDS: METOPROLOL TARTRATE 25 MG TAB PO SCH (08:43)
[2018-07-19] MEDS: amLODIPine 10 MG TAB PO SCH (08:43)
[2018-07-19] MEDS: FUROSEMIDE 20 MG TAB PO SCH (08:43)
[2018-07-19] MEDS: SENNOSIDES 8.6 MG TAB PO SCH (08:43)
[2018-07-19] MEDS: CLOPIDOGREL 75 MG TAB PO SCH (08:43)
[2018-07-19] MEDS: METOPROLOL TARTRATE 12.5 MG TAB PO SCH (08:43)
[2018-07-19] MEDS: FAMOTIDINE 20 MG TAB PO SCH (08:43)
[2018-07-19] MEDS: ASPIRIN 81 MG PO SCH (08:43)
[2018-07-19] MEDS: LISINOPRIL 20 MG TAB PO SCH (08:44)
[2018-07-19 08:51] VITALS: TEMP 97.9
--- NOTE | 2018-07-19 10:20 | DS ---
DISCHARGE SUMMARY DATE OF SERVICE: 07/19/2018. DATA: Height 5 feet 6 inches, weight 67.5 kg, BSA 1.76 square meter, BMI 24.0 kg/square meter. ALLERGIES: Allergy is unknown. FINAL DIAGNOSES: 1. Non-STEMI myocardial infarction, acute. 2. Unstable angina. 3. Status post coronary artery bypass graft. 4. Hypertension with hypertensive heart disease controlled. 5. Hyperlipidemia. 6. Bradycardia with the adjustment of the beta blockers. The patient's presentation presented to the ER with wheelchair. The patient brought by the family and she had at that time chest pain substernal with the upper chest. The cardiac panel was indicating elevated troponin. The patient admitted to the floor with the consultation with Cardiology. The patient monitored. HOSPITAL COURSE: The patient monitored on telemetry and echocardiogram was indicating sinus rhythm with the ejection fraction 55% to 60% and found that she has as well left atrium severely dilated, more than 40 mL/square meter as well as she had [id number]-ucdckbkp mitral regurgitation, mild tricuspid regurgitation, sqwc-xo-epcizohf pulmonary hypertension, physiologic pulmonary regurgitation and she had a resting bradycardia. She was seen by Dr. Sawyer Roberson, Cardiology, and he is indicating that the patient as well had prior bypass surgery, hypertension, hyperlipidemia, GERD disease, and she presented with non- wave myocardial infarction and medical therapy is advised. The patient has previous cardiac catheterization in February 2018 and was advised with medical therapy. She had a chronically occluded left and the left anterior descending with a lesion in the diagonal branch. She has a chronic occluded right coronary artery. Vein graft to the diagonal was occluded and the KAM to the LAD was patent. There was attempt at to the angioplasty, not on this admission, with the vein graft which was unsuccessful. The patient currently stable in the hospital course, monitored and stable. Her laboratory indicating improvement with monitoring the troponin as well. Her troponin was started with 0.969 followed by 2.850, followed by 3.740; subsequently, it started to come down. On July 18, her troponin went down to 1.200. Initially, her was elevated 1240 and subsequently down to 510. Her cholesterol medication was adjusted as well. As patient continued to be stable, free of the chest pain, no abdominal pain. Today examination on discharge temperature 97.9 orally, pulse 62, and we held the at bedtime metoprolol due to effect of bradycardia during the night. Her blood pressure is stable 131/58, and normalized and the pulse ox was 97. On the examination, she is conscious, alert, oriented. She has chest is aerated bilaterally. She had minimal rales on the bases. However, she has been treated with Lasix and increased and no symptoms at this time. The heart was regular sinus rhythm. The abdomen was soft, nontender, positive bowel sounds. Extremities, no edema. ASSESSMENT: The patient is stable for discharge. Advised and discussed with her to follow up with Dr. Haddad the PCP as well as Dr. Radha Solitario. Her medication and prescription added amlodipine 10 mg and furosemide 40 mg twice a day as well as Imdur 60 mg once a day. This is added medication. MMODL / IJN: [id number] /
--- NOTE | 2018-07-19 12:08 | P.PN ---
Subjective Progress Note Date: 07/19/18 This is an 87-year-old female with history of coronary artery disease and prior bypass surgery, hypertension, hyperlipidemia, GERD, who presented to the hospital with non-wave myocardial infarction, medical therapy advised. Patient has known disease and has had bypass surgery, most recently she underwent a cardiac catheterization in February 2018 and was advised medical therapy. She has a chronically occluded LAD with a lesion in the diagonal branch, chronically occluded right coronary artery. The vein graft to the diagonal was occluded. KAM to the LAD was patent. There was an attempt made at angioplasty with vein graft to the LAD which was unsuccessful. Echocardiogram with Doppler study was performed which revealed an ejection fraction of 55-60%. Upon examination this morning, patient is sitting up at the side of the bed. She's been up ambulating. She denies any complaints of chest discomfort and her breathing is stable overall. Vital signs are stable. Primary is planning for discharge today. Objective - Vital Signs Vital signs: Vital Signs Temp 97.9 F 07/19/18 08:00 Pulse 62 07/19/18 08:00 Resp 16 07/19/18 04:00 BP 131/58 07/19/18 08:00 Pulse Ox 92 L 07/19/18 08:06 Intake & Output 07/18/18 07/19/18 07/19/18 18:59 06:59 18:59 Intake Total 720 490 120 Balance 720 490 120 Weight 67.5 kg Intake: IV 10 .9 10 Oral 720 480 120 Other: # Voids 2 1 1 # Bowel Movements 0 - Exam PHYSICAL EXAMINATION: HEENT: Head is atraumatic, normocephalic. Pupils equal, round. Neck is supple. There is no elevated jugular venous pressure. HEART EXAMINATION: Heart sounds regular, S1 and S2 with a systolic ejection murmur. CHEST EXAMINATION: Lungs are clear to auscultation and precussion. No chest wall tenderness is noted on palpation or with deep breathing. ABDOMEN: Soft, nontender. Bowel sounds are heard. No organomegaly noted. EXTREMITIES: 2+ peripheral pulses with no evidence of peripheral edema and no calf tenderness noted. NEUROLOGIC patient is awake, alert and oriented x3. . - Labs CBC & Chem 7: 07/18/18 06:38 07/18/18 06:38 Assessment and Plan Assessment: #1 non-ST elevation NM, maximize medical therapy advised #2 known history of CAD with prior bypass surgery, most recent cardiac catheterization performed in February of this year which patient also underwent attempted angioplasty of the vein graft to the LAD which was unsuccessful, medical therapy advised at that time #3 hyperlipidemia #4 hypertension Plan: From cardiology's perspective, patient is stable for discharge home. She'll follow-up with Dr. TABATHA Solitario in the office as an outpatient. The above dictated assessment and findings were discussed with signing physician. The impression and plan of care have been directed as dictated. Fanny Rhodes, Nurse Practitioner, acting as scribe for signing physician.
[2018-07-19 14:35] VITALS: BP 133/62; PULSE 54
== END 2018-07-19 12:50 | disposition home or self-care (01) | DRG 282 ==
LOC: EC 03:19 → 6SEL 05:41
PROVIDERS: ADMIT Internal Medicine; ATTEND Internal Medicine
DX: I21.4 Non-ST elevation (NSTEMI) myocardial infarction (principal); I25.110 Atherosclerotic heart disease of native coronary artery with unstable angina pectoris; I27.20 Pulmonary hypertension, unspecified; I08.3 Combined rheumatic disorders of mitral, aortic and tricuspid valves; F03.90 Unspecified dementia, unspecified severity, without behavioral disturbance, psychotic disturbance, mood disturbance, and anxiety; I37.1 Nonrheumatic pulmonary valve insufficiency; I11.9 Hypertensive heart disease without heart failure; R00.1 Bradycardia, unspecified; E78.5 Hyperlipidemia, unspecified; K21.9 Gastro-esophageal reflux disease without esophagitis; I44.0 Atrioventricular block, first degree; I25.2 Old myocardial infarction; H91.90 Unspecified hearing loss, unspecified ear; Z79.82 Long term (current) use of aspirin; Z79.02 Long term (current) use of antithrombotics/antiplatelets; Z79.899 Other long term (current) drug therapy; Z95.1 Presence of aortocoronary bypass graft
CPT/HCPCS: 36415; 71045; 80048; 80053; 80061; 82550; 82553; 83735; 83880; 84484; 85025; 85610; 85730; 93005; 93306; 94760; 96372; 96374; 99285

== ENCOUNTER 2019-10-02 12:55 | Inpatient (IN) | payer MEDICARE, BC ==
--- NOTE | 2019-10-02 13:50 | ED ---
Chest Pain HPI - General Chief Complaint: Chest Pain Stated Complaint: Chest pain Time Seen by Provider: 10/02/19 13:03 Source: patient, family, RN notes reviewed Mode of arrival: ambulatory Limitations: physical limitation - History of Present Illness Initial Comments: This is an 88-year-old female brought in by her son with complaints of chest pain is started around noon today according to the patient's son the pain started in the upper chest the patient herself is a somewhat poor historian and could not say what the pain felt like how severe was. No reports of nausea vomiting or other symptoms. The patient is ever prior history of four-way bypass in 2017. No other modifying factors at this time. MD Complaint: chest pain - Related Data Home Medications Medication Instructions Recorded Confirmed Atorvastatin [Lipitor] 40 mg PO HS 03/11/18 10/02/19 Famotidine [Pepcid] 20 mg PO DAILY 03/11/18 10/02/19 Metoprolol Tartrate [Lopressor] 25 mg PO DAILY 03/11/18 10/02/19 Sennosides [Senna] 8.6 mg PO BID 03/11/18 10/02/19 Nitroglycerin Sl Tabs [Nitrostat] 0.4 mg SUBLINGUAL Q5M PRN 03/12/18 10/02/19 Furosemide [Lasix] 20 mg PO BID@0900,1600 10/02/19 10/02/19 amLODIPine [Norvasc] 5 mg PO DAILY 10/02/19 10/02/19 Previous Rx's Medication Instructions Recorded Aspirin 81 mg PO DAILY chew 03/14/18 Lisinopril [Zestril] 20 mg PO DAILY tab 03/14/18 Isosorbide Mononitrate ER [Imdur] 60 mg PO DAILY #60 tab.er.24h 07/19/18 Allergies Allergy/AdvReac Type Severity Reaction Status Date / Time No Known Allergies Allergy Verified 10/02/19 13:42 Review of Systems ROS Statement: Those systems with pertinent positive or pertinent negative responses have been documented in the HPI. ROS Other: All systems not noted in ROS Statement are negative. EKG Findings - EKG Results: EKG: interpreted by ROLANDO, sinus rhythm (Sinus bradycardia rate of 47. Interval 200 QRS duration 98 QT since QTC 542/[address] elevation in the lateral leads V1 aVL this is changed from a previous EKG done in 2018) Past Medical History Past Medical History: Coronary Artery Disease (CAD), Chest Pain / Angina, Hyperlipidemia, Hypertension Additional Past Medical History / Comment(s): Fall last spring 2016- staple in the back of head History of Any Multi-Drug Resistant Organisms: None Reported Past Surgical History: Coronary Bypass/CABG Additional Past Surgical History / Comment(s): CABG 2009 Past Anesthesia/Blood Transfusion Reactions: No Reported Reaction Past Psychological History: No Psychological Hx Reported Smoking Status: Never smoker Past Alcohol Use History: None Reported Past Drug Use History: None Reported General Exam - General Exam Comments Initial Comments: this is a well-developed asthenic appearing female who is awake alert Limitations: physical limitation General appearance: alert, in no apparent distress Head exam: Present: atraumatic, normocephalic, normal inspection Eye exam: Present: normal appearance, PERRL, EOMI. Absent: scleral icterus, conjunctival injection, periorbital swelling ENT exam: Present: normal exam, mucous membranes moist Neck exam: Present: normal inspection. Absent: tenderness, meningismus, lymphadenopathy Respiratory exam: Present: normal lung sounds bilaterally. Absent: respiratory distress, wheezes, rales, rhonchi, stridor Cardiovascular Exam: Present: regular rate, normal rhythm, normal heart sounds. Absent: systolic murmur, diastolic murmur, rubs, gallop, clicks GI/Abdominal exam: Present: soft, normal bowel sounds. Absent: distended, tenderness, guarding, rebound, rigid Extremities exam: Present: normal inspection, full ROM, normal capillary refill. Absent: tenderness, pedal edema, joint swelling, calf tenderness Back exam: Present: normal inspection Neurological exam: Present: alert, oriented X3, CN II-XII intact Psychiatric exam: Present: normal affect, normal mood Skin exam: Present: warm, dry, intact, normal color. Absent: rash Course Vital Signs 10/02/19 12:56 Temperature 97.3 F L Pulse Rate 51 L Respiratory 20 Rate Blood Pressure 164/77 O2 Sat by Pulse 99 Oximetry - Reevaluation(s) Reevaluation #1: 10/02/19 13:43 EKG was done which did show evidence of bradycardia and mild ST elevation in lateral leads. Reevaluation #2: 10/02/19 13:47 Dr Josue was in emergency department I did show him the EKG and discussed the findings with him. Patient did evaluated initially it was thought that medical management could be performed however the patient had more pain and became more bradycardic and was staggering the cardiac feed mill lab technician. A STEMI alert was called in the emergency department. Reevaluation #3: 10/02/19 13:56 ADM more chest pain and repeat EKG showed her break heart rate of 41 evidence of a lateral injury pattern persists AL interval 206 QRS duration 104 QT since QTC 582/480 Chest Pain MDM - MDM I did discuss the findings with . the patient will be admitted for further evaluation Critical Care Time Critical Care Time: Yes Critical Care Time: 2 minutes of critical care time which included this presentation with history physical labs x-rays several reevaluation the patient discussed with the bao ent's family discussed with cardiology discussion with the admitting physician review of old charting was available. Disposition Clinical Impression: STEMI (ST elevation myocardial infarction), Chest pain, History of heart bypass surgery Disposition: ADMITTED IP TO THIS HOSP Condition: Serious Referrals: Kirk Haddad MD [Primary Care Provider] - 1-2 days
[2019-10-02] MEDS ORDERED: ASPIRIN 325 MG TAB ONE (13:59)
[2019-10-02 14:00] LABS: Basophils # (A) 0.3 k/uL (0-0.2); Basophils % (A) 2 %; Eosinophils # (A) 0.1 k/uL (0-0.7); Eosinophils % (A) 1 %; HCT 53.3 % (34.0-46.0); HGB 16.4 gm/dL (11.4-16.0); Hypochromasia Slight; Lymphocytes # (A) 0.4 k/uL (1.0-4.8); Lymphocytes % (A) 3 %; MCH 26.8 pg (25.0-35.0); MCHC 30.7 g/dL (31.0-37.0); MCV 87.3 fL (80.0-100.0); Mean Platelet Volume 9.5; Monocytes # (A) 0.5 k/uL (0-1.0); Monocytes % (A) 5 %; Neutrophils # (A) 9.8 k/uL (1.3-7.7); Neutrophils % (A) 87 %; Platelet Count 649 k/uL (150-450); RBC 6.11 m/uL (3.80-5.40); RDW 14.4 % (11.5-15.5); WBC 11.3 k/uL (3.8-10.6)
[2019-10-02] MEDS ORDERED: ASPIRIN 325 MG TAB PO ONE (14:00)
[2019-10-02] MEDS ORDERED: IV FLUID CONTINUATION 1,000 ML IV ONE (14:02)
[2019-10-02] MEDS ORDERED: SODIUM CHLORIDE 0.9% 1,000 ML IV ONE (14:02)
[2019-10-02] MEDS ORDERED: HEPARIN SODIUM 1,000 UN/ML (10ML VL) ONE (14:05)
[2019-10-02] MEDS ORDERED: MIDAZOLAM 2 MG/2 ML VIAL IV ONE (14:05)
[2019-10-02] MEDS ORDERED: LIDOCAINE 1% INJ 10MG/ML (20 ML MDV) SQ ONE ×2 (14:07→14:08)
[2019-10-02 14:12] LABS: Partial Thromboplastin Time 25.7 sec (22.0-30.0); Prothrombin Time 10.9 sec (9.0-12.0)
[2019-10-02 14:17] LABS: Albumin 3.8 g/dL (3.5-5.0); Calcium 9.9 mg/dL (8.4-10.2); Total Bilirubin 0.7 mg/dL (0.2-1.3); Total Protein 6.8 g/dL (6.3-8.2)
[2019-10-02] MEDS ORDERED: CLOPIDOGREL 75 MG TAB ONE (14:22)
[2019-10-02] MEDS ORDERED: ATROPINE SULFATE 0.1 MG/ML 10ML SYRINGE IV ONE (14:23)
[2019-10-02] MEDS ORDERED: CLOPIDOGREL 75 MG TAB PO ONE (14:28)
[2019-10-02] MEDS ORDERED: BIVALIRUDIN BOLUS 250 MG/50 ML IV ONE (14:28)
[2019-10-02] MEDS ORDERED: BIVALIRUDIN 250 MG in SODIUM CHLORIDE 0.9% 50 ML IV ONE (14:29)
[2019-10-02] MEDS ORDERED: NITROGLYCERIN 1000MCG/10ML SYRINGE INTRAARTER ONE (14:30)
[2019-10-02 14:35] LABS: Creatine Kinase MB 11.6 ng/mL (0.0-2.4)
[2019-10-02] MEDS ORDERED: IOPAMIDOL-370 125ML BTL INJ ONE (14:39)
[2019-10-02 14:45] LABS: Troponin I 0.799 ng/mL (0.000-0.034)
[2019-10-02] MEDS ORDERED: RX INFO: IV CONTRAST WAS GIVEN 1 EACH MISC MISCELLANE PRN (15:05)
[2019-10-02] MEDS ORDERED: NITROGLYCERIN SL TABS 0.4 MG TAB SUBLINGUAL PRN (15:09)
[2019-10-02] MEDS ORDERED: SODIUM CHLORIDE 0.9% 1,000 ML IV SCH (15:15)
--- NOTE | 2019-10-02 15:16 | CC ---
CARDIAC CATHETERIZATION REPORT Mrs Xiong is an 88-year-old female who came to the emergency room with a complaint of chest discomfort. Initial EKG showed minimal ST elevation in the 1 and aVL. The ER physician was not definitely sure whether patient is having ST-segment elevation myocardial infarction and the family and had some delayed in the consent. Subsequently, patient had more episodes of chest pain. The EKG was repeated which again showed evidence of ST-segment elevation in 1 and aVL and reciprocal inferior ST- segment changes. After discussion with the family members, it was decided to proceed with a cardiac catheterization for definitive diagnosis. PROCEDURE: The right groin was prepped and draped in the usual manner and the right femoral artery was entered using Seldinger technique. A #6-Setswana sheath was placed in. Selective coronary angiography and selective injection of the graft was completed. HEMODYNAMICS: The left ventricular end-diastolic pressure is 20-22 mmHg prior to angiography. No gradient is noted across the aortic valve. Left main coronary artery is normally patent. LAD is totally occluded after the origin of the septal button buttonhole marker. The circumflex coronary artery is totally occluded. The right coronary artery is diffusely diseased with multiple areas of 80%-90% stenosis. The distal PDA branch is occluded. The saphenous vein graft to the first obtuse marginal branch is totally occluded. The saphenous vein graft to the second obtuse marginal branch is totally occluded and saphenous vein graft to the diagonal branch is occluded. The KAM graft to the LAD was patent. The films were reviewed with Dr. Solano. The saphenous vein graft to the obtuse marginal branch is very ectatic and diffusely diseased in the prior catheterization films and it was considered unsafe at present to attempt to open the this graft as the saphenous vein graft is diffusely diseased and medical treatment was recommended. MMODL / IJN: [id number] /
[2019-10-02 16:56] LABS: Magnesium 2.1 mg/dL (1.6-2.3)
--- NOTE | 2019-10-02 18:22 | CONS ---
CONSULTATION Mrs. Xiong is an 88-year-old female who was seen in the emergency room. The patient came to the emergency room with the complaint of chest discomfort. The patient started having pain this morning. The pain was a dull aching, radiating to both arms and jaw. She was slightly nauseated. Patient felt weak. She came to the emergency room. Initial EKG showed minimal ST-segment elevation in I and aVL. Emergency room physician was not exactly sure. Subsequently the patient continued to have more pain. Repeat EKG again showed ST-segment elevation in I and aVL and reciprocal ST-segment depression. The patient was bradycardic. In view of the persistent chest pain, I had a long discussion with the patient's son and we proceeded with cardiac catheterization. This patient has a prior history of coronary artery bypass surgery in 2006. In 2011, the patient had a repeat cardiac catheterization which revealed a circumflex artery occlusion, saphenous vein graft to the diagonal branch was okay, and saphenous vein graft to the PLV was occluded. The KAM graft to the LAD was patent. Patient presented with non-Q-wave myocardial infarction in February of 2018. At that time, repeat cardiac catheterization was performed and an attempt was made to open the saphenous vein graft to the diagonal branch, which was unsuccessful. The saphenous vein graft to the obtuse marginal branch and the KAM graft were patent. PAST MEDICAL HISTORY: Past medical history includes coronary artery bypass surgery, hyperlipidemia, hypertension, CABG. MEDICATIONS: The patient's home medications include: 1. Aspirin 81 mg daily. 2. Plavix was recently stopped. 3. Lipitor 40 mg daily. 4. Pepcid. 5. Lasix 20 mg b.i.d. 6. Zestril 10 mg daily. 7. Lopressor 25 mg daily. 8. Norvasc 5 mg daily. PHYSICAL EXAMINATION: Physical examination reveals an 88-year-old female who was having a moderate degree of chest discomfort. The blood pressure was 110/80 mmHg. Heart rate was 40 per minute. Head/ENT examination was negative. Neck was supple. There is no increase in jugular venous pressure. Both the carotid pulses are felt. There is no bruit. Chest is symmetrical. HEART: The PMI is not felt. First and second heart sounds are normal. There is no evidence of any significant murmur. Lungs are clear to auscultation and percussion. Abdomen is negative. EXTREMITIES: Distal pulses are not felt. EKG was suggestive of lateral wall myocardial infarction. FINAL IMPRESSION: 1. Acute UC-rmsqkig-nhqwsctwn lateral wall myocardial infarction. 2. Status post coronary artery bypass surgery. 3. History of hypertension. RECOMMENDATIONS: Because of the continued chest pain, after a long discussion with the patient's family members, we decided to proceed with cardiac catheterization to see whether any kind of intervention can be done. The procedure and the risks were fully explained to the patient as well as the family member. MMODL / IJN: [id number] /
[2019-10-02] MEDS: FUROSEMIDE 20 MG TAB PO SCH (18:27)
[2019-10-02] MEDS ORDERED: NALOXONE 0.4 MG/ML 1 ML VIAL IV PRN (18:49)
[2019-10-02] MEDS ORDERED: ACETAMINOPHEN TAB 325 MG TAB PO PRN (18:49)
[2019-10-02] MEDS ORDERED: MELATONIN 3 MG TABLET PO PRN (18:49)
[2019-10-02] MEDS ORDERED: ONDANSETRON 4 MG/2 ML VIAL IVP PRN (18:49)
[2019-10-02 19:03] LABS: Basophils # (A) 0.1 k/uL (0-0.2); Basophils % (A) 1 %; Eosinophils # (A) 0.1 k/uL (0-0.7); Eosinophils % (A) 1 %; HCT 54.2 % (34.0-46.0); HGB 16.7 gm/dL (11.4-16.0); Hypochromasia Slight; Lymphocytes # (A) 0.6 k/uL (1.0-4.8); Lymphocytes % (A) 5 %; MCH 27.2 pg (25.0-35.0); MCHC 30.9 g/dL (31.0-37.0); MCV 88.1 fL (80.0-100.0); Mean Platelet Volume 9.4; Monocytes # (A) 0.5 k/uL (0-1.0); Monocytes % (A) 4 %; Neutrophils # (A) 10.7 k/uL (1.3-7.7); Neutrophils % (A) 88 %; Platelet Count 596 k/uL (150-450); RBC 6.15 m/uL (3.80-5.40); RDW 14.4 % (11.5-15.5); WBC 12.2 k/uL (3.8-10.6)
[2019-10-02] MEDS ORDERED: FUROSEMIDE 10 MG/ML 2 ML VIAL IV ONE (19:06)
--- NOTE | 2019-10-02 19:07 | P.HPIM ---
History of Present Illness H&P Date: 10/02/19 Chief Complaint: chest pain Patient is a 88-year-old female past medical history of hypertension, dyslipidemia, coronary artery disease status post three-vessel bypass, and worsening memory who presented to the emergency department with her son secondary to chest pain. In the ER she underwent an extensive evaluation. On arrival she was bradycardic with a pulse of 51 and have blood pressure 164/77. Initial EKG showed some possible ST segment elevation. Cardiology was called and presented to the bedside. They review the case and ordered an EKG when her chest pain got worse. Subsequently they called a code STEMI and the patient was taken to the cardiac Recruiting Intern. It was determined that a saphenous vein grafts to the obtuse marginal branch was very ectatic and it was considered unsafe to open. Medical therapy was determined to be the best approach. She was subsequently transferred to the ICU. Patient seen and examined at bedside with family present. She does have some memory loss which has been worsening recently and son helps provide history. Apparently she started having some chest pain last evening and it progressed and got worse throughout the day today. Her [facility] complex called the family and alerted them. They decided to take her to the hospital. She reports that her chest pain is left-sided in nature and is associated with some shortness of breath. Son reports that it was radiating to her shoulder. She does report a cough that is nonproductive for the last 2 days. She initially reported some shortness of breath but then said she was not short of breath. They deny any unusual weakness. She does report some possible palpitations. She had decreased appetite today at lunchtime. She typically uses a 4 wheeled walker. They had no other acute concerns. She sees Dr. Solitario for her dextrine mixer and Dr. Haddad for her primary care physician. Patient and her son reports that they would like her to stay a full code. Review of Systems Unable to obtain full review of systems due to confusion Past Medical History Past Medical History: Coronary Artery Disease (CAD), Chest Pain / Angina, Hyperlipidemia, Hypertension Additional Past Medical History / Comment(s): spring- staple in the back of head, memory deficits History of Any Multi-Drug Resistant Organisms: None Reported Past Surgical History: Coronary Bypass/CABG Additional Past Surgical History / Comment(s): CABG 2008, yudy, b/l MP Past Anesthesia/Blood Transfusion Reactions: No Reported Reaction Past Psychological History: No Psychological Hx Reported Smoking Status: Never smoker Past Alcohol Use History: None Reported Past Drug Use History: None Reported Additional History: Lives at a fpc, uses a 4 wheeled walker - Past Family History Mother Additional Family Medical History / Comment(s): no coronary artery disease Medications and Allergies Home Medications Medication Instructions Recorded Confirmed Type Atorvastatin [Lipitor] 40 mg PO HS 03/11/18 10/02/19 History Famotidine [Pepcid] 20 mg PO DAILY 03/11/18 10/02/19 History Metoprolol Tartrate [Lopressor] 25 mg PO DAILY 03/11/18 10/02/19 History Sennosides [Senna] 8.6 mg PO BID 03/11/18 10/02/19 History Nitroglycerin Sl Tabs [Nitrostat] 0.4 mg SUBLINGUAL Q5M PRN 03/12/18 10/02/19 History Aspirin 81 mg PO DAILY chew 03/14/18 10/02/19 Rx Lisinopril [Zestril] 20 mg PO DAILY tab 03/14/18 10/02/19 Rx Isosorbide Mononitrate ER [Imdur] 60 mg PO DAILY #60 tab.er.24h 07/19/18 10/02/19 Rx Furosemide [Lasix] 20 mg PO BID@0900,1600 10/02/19 10/02/19 History amLODIPine [Norvasc] 5 mg PO DAILY 10/02/19 10/02/19 History Allergies Allergy/AdvReac Type Severity Reaction Status Date / Time No Known Allergies Allergy Verified 10/02/19 13:42 Physical Exam Osteopathic Statement: *. No significant issues noted on an osteopathic structural exam other than those noted in the History and Physical/Consult. Vitals: Vital Signs Temp Pulse Pulse Resp BP BP Pulse Ox 10/02/19 18:21 69 16 141/75 89 L 10/02/19 17:10 67 16 133/66 97 10/02/19 17:05 73 16 142/82 90 L 10/02/19 17:00 67 16 136/75 91 L 10/02/19 16:50 66 16 139/81 90 L 10/02/19 16:20 66 16 135/76 89 L 10/02/19 15:50 68 16 135/74 92 L 10/02/19 15:35 73 16 133/73 91 L 10/02/19 15:20 68 16 141/76 89 L 10/02/19 15:05 68 16 149/81 83 L 10/02/19 14:00 42 L 20 127/80 95 10/02/19 13:50 42 L 20 127/80 95 10/02/19 13:40 41 L 20 127/80 94 L 10/02/19 13:30 43 L 20 138/58 96 10/02/19 13:20 45 L 20 138/58 96 10/02/19 13:16 20 87 L 10/02/19 13:03 40 L 10/02/19 12:56 97.3 F L 51 L 20 164/77 99 Intake and Output 10/02/19 10/02/19 10/02/19 06:59 14:59 22:59 Intake Total 122 200 Balance 122 200 Intake: IV 122 200 Other: Weight 68.039 kg General: ill appearing, no distress, appears at stated age, normal weight Derm: no unusual rashes/lesions no unusual ecchymoses, warm, dry Head: atraumatic, normocephalic, symmetric Eyes: lateral deviation left eye, no lid lag, anicteric sclera, pupils equal round reactive to light ENT: Nose and ears atraumatic, no thrush, no pharyngeal erythema Neck: No thyromegaly, no cervical lymphadenopathy, trachea midline, supple Mouth: no lip lesion, mucus membranes dry, poor dentition Cardiovascular: S1S2 reg, no murmur, positive posterior tibial pulse bilateral, 1+ edema, capillary refill less than 2 seconds Lungs: Decreased bs bilateral, no rhonchi, no rales , no accessory muscle use Abdominal: soft, nontender to palpation, no guarding, no appreciable organomegaly, normal bowel sounds Ext: no gross muscle atrophy, muscle strength 4 out of 5 in all 4 extremities grossly, no contractures, Neuro: CN II-XI grossly intact, light touch intact all 4 extremities, finger to nose within normal limits, Psych: Alert, oriented, appropriate affect Results CBC & Chem 7: 10/02/19 13:45 10/02/19 13:45 Labs: Abnormal Lab Results - Last 24 Hours (Table) 10/02/19 10/02/19 10/02/19 Range/Units 13:45 13:45 13:45 WBC 11.3 H (3.8-10.6) k/uL RBC 6.11 H (3.80-5.40) m/uL Hgb 16.4 H (11.4-16.0) gm/dL Hct 53.3 H (34.0-46.0) % MCHC 30.7 L (31.0-37.0) g/dL Plt Count 649 H (150-450) k/uL Neutrophils # 9.8 H (1.3-7.7) k/uL Lymphocytes # 0.4 L (1.0-4.8) k/uL Basophils # 0.3 H (0-0.2) k/uL D-Dimer (<0.60) mg/L FEU BUN 19 H (7-17) mg/dL Glucose 145 H (74-99) mg/dL CK-MB (CK-2) 11.6 H (0.0-2.4) ng/mL Troponin I 0.799 H* (0.000-0.034) ng/mL 10/02/19 Range/Units 13:45 WBC (3.8-10.6) k/uL RBC (3.80-5.40) m/uL Hgb (11.4-16.0) gm/dL Hct (34.0-46.0) % MCHC (31.0-37.0) g/dL Plt Count (150-450) k/uL Neutrophils # (1.3-7.7) k/uL Lymphocytes # (1.0-4.8) k/uL Basophils # (0-0.2) k/uL D-Dimer 0.77 H (<0.60) mg/L FEU BUN (7-17) mg/dL Glucose (74-99) mg/dL CK-MB (CK-2) (0.0-2.4) ng/mL Troponin I (0.000-0.034) ng/mL Thrombosis Risk Factor Assmnt - DVT/VTE Prophylaxis DVT/VTE Prophylaxis: Low risk, early ambulation encouraged Assessment and Plan Assessment: STEMI - Cardio recs appreciated: medical management - ASA, lipitor, plavix, imdur, lisinopril - no BB due to bradycardia - trend troponin Leukocytosis - undetermined etiology - CXR and UA with reflex - repeat CBC in AM HTN - conitnue current meds - follow BP HLD - statin Memory loss - safe and supportive environment Hx of falls - fall precautions - pt evaluation The patient is admitted with an anticipated greater than 2 midnight stay for evaluation of STEMI. Surrogate decision-maker: DaughterKenya do CODE STATUS:full DVT prophylaxis: SCDs Discussed with: patient, son, nursing, ED physician Anticipated discharge date: 2-[address]: home A total of 65 minutes was spent on the care of this complex patient more than 50% of the time was spent in counseling and care coordination.
[2019-10-02] MEDS: SENNOSIDES 8.6 MG TAB PO SCH (19:46)
[2019-10-02] MEDS: ATORVASTATIN 40 MG TAB PO SCH (19:46)
--- NOTE | 2019-10-02 19:54 | XR ---
EXAMINATION TYPE: XR chest 1V DATE OF EXAM: 10/02/2019 COMPARISON: July 16, 2018 HISTORY: Chest pain and short of breath TECHNIQUE: Single view FINDINGS: There is pulmonary interstitial and alveolar edema. Heart is enlarged. There are sternal wi res. There are chest leads. IMPRESSION: There is new pulmonary edema compared to last exam that is consistent with acute heart fa ilure.
[2019-10-03 06:42] LABS: HGB 18.7 gm/dL (11.4-16.0); Hypochromasia Moderate; MCHC 32.3 g/dL (31.0-37.0); MCV 86.6 fL (80.0-100.0); Platelet Count 684 k/uL (150-450); RDW 14.2 % (11.5-15.5); WBC 16.7 k/uL (3.8-10.6)
[2019-10-03 07:02] LABS: Appearance,Urine Clear (Clear); Bacteria,Urine Rare /hpf; Bilirubin,Urine Negative (Negative); Blood,Urine Trace (Negative); Color,Urine Light Yellow; Glucose,Urine (UA) Negative (Negative); Ketones,Urine Negative (Negative); Leukocyte Esterase,Urine Small (Negative); Mucus,Urine Rare /hpf; Nitrite,Urine Negative (Negative); Protein,Urine Negative (Negative); RBC,Urine <1 /hpf (0-5); Specific Gravity,Urine 1.018 (1.001-1.035); Squamous Epithelial Cell,Urine <1 /hpf (0-4); Urobilinogen,Urine <2.0 mg/dL (<2.0); WBC,Urine 1 /hpf (0-5)
[2019-10-03 07:34] LABS: Calcium 10.4 mg/dL (8.4-10.2); Potassium 4.2 mmol/L (3.5-5.1)
[2019-10-03] MEDS: LISINOPRIL 20 MG TAB PO SCH (08:38)
[2019-10-03] MEDS: FAMOTIDINE 20 MG TAB PO SCH (08:38)
[2019-10-03] MEDS: ASPIRIN 81 MG PO SCH (08:38)
[2019-10-03] MEDS: amLODIPine 5 MG TAB PO SCH (08:38)
[2019-10-03] MEDS: SENNOSIDES 8.6 MG TAB PO SCH ×2 (08:38→21:51)
[2019-10-03] MEDS: ISOSORBIDE MONONITRATE ER 60 MG TAB.ER.24H PO SCH (08:38)
[2019-10-03] MEDS: FUROSEMIDE 20 MG TAB PO SCH (08:38)
[2019-10-03] MEDS: CLOPIDOGREL 75 MG TAB PO SCH (08:38)
--- NOTE | 2019-10-03 11:52 | ECHOF ---
Referral Reason:chf MEASUREMENTS -------- HEIGHT: 167.6 cm WEIGHT: 68.5 kg BP: 144/75 IVSd: 1.6 cm (0.6 - 1.1) LVIDd: 4.5 cm (3.9 - 5.3) LVPWd: 1.2 cm (0.6 - 1.1) IVSs: 1.8 cm LVIDs: 3.9 cm LVPWs: 1.7 cm LAESV Index (A-L): 50.03 ml/m AV maxP.96 mmHg AV meanP.00 mmHg RAP: 5.00 mmHg RVSP: 41.24 mmHg FINDINGS -------- Sinus rhythm. This was a technically difficult study with suboptimal parasternal views. Limited Study The left ventricular size is normal. There is moderate concentric left ventricular hypertrophy. O verall left ventricular systolic function is mild-moderately impaired with, an EF between 40 - 45 %. Increased Lap Grade II Diastolic Dysfunction. Septal wall motion is delayed and consistent with p rior cardiac surgery. Mid lateral LV wall motion is hypokinetic. Apical lateral LV wall motion i s hypokinetic. LA is severely dilated >40 ml/m2 5.0mg of Lumason was utilized for enhancement of images There is moderate aortic stenosis present. Peak/mean gradient across the Aortic Valve is 48.96mmHg / 26.00mmHg. Leuegwtk-vh-ovdabt mitral regurgitation is present. Zwet-gc-pfdykwfv tricuspid regurgitation present. There is mild to moderate pulmonary hypertension. The right ventricular systolic pressure, as measured by Doppler, is 41.24mmHg. There is no pericardial effusion. CONCLUSIONS -------- 1. Sinus rhythm. 2. This was a technically difficult study with suboptimal parasternal views. 3. Limited Study 4. The left ventricular size is normal. 5. There is moderate concentric left ventricular hypertrophy. 6. Overall left ventricular systolic function is mild-moderately impaired with, an EF between 40 - 45 %. 7. Increased Lap Grade II Diastolic Dysfunction. 8. Septal wall motion is delayed and consistent with prior cardiac surgery. 9. Mid lateral LV wall motion is hypokinetic. 10. Apical lateral LV wall motion is hypokinetic. 11. LA is severely dilated >40 ml/m2 12. 5.0mg of Lumason was utilized for enhancement of images 13. There is moderate aortic stenosis present. 14. Peak/mean gradient across the Aortic Valve is 48.96mmHg / 26.00mmHg. 15. Zccndong-hj-ziwyvl mitral regurgitation is present. 16. Wicf-qu-tcagrzwx tricuspid regurgitation present. 17. There is mild to moderate pulmonary hypertension. 18. The right ventricular systolic pressure, as measured by Doppler, is 41.24mmHg. 19. There is no pericardial effusion. CNC MECHANIC: Alice Martin RDCS
[2019-10-03] MEDS: FUROSEMIDE 10 MG/ML 2 ML VIAL IV SCH ×2 (12:46→21:51)
--- NOTE | 2019-10-03 15:11 | PN ---
PROGRESS NOTE This patient came to the hospital yesterday with chest pain. Patient's EKG was suggestive of acute lateral wall myocardial infarction and she underwent cardiac catheterization. Patient had a saphenous vein graft to the obtuse marginal branch that was totally occluded. This graft was severely degenerated and ectatic. Films were reviewed with Dr. Solano. He did not recommend a stent of the graft and advised medical treatment. Patient is feeling better. Denies any chest pain. Patient is not in any respiratory distress. The oxygen saturation is 92%. Blood pressure is 135/72 mmHg. First and second heart sounds are heard. Lungs reveal bilateral basal rales. Chest x-ray done last night is suggestive of congestive heart failure. We will change the patient to Lasix at 20 mg IV b.i.d. Continue the rest of the medications. Echo and Doppler study is ordered. MMLEIGH ANNL / IJN: [id number] /
--- NOTE | 2019-10-03 15:38 | P.PN ---
Subjective Progress Note Date: 10/03/19 Principal diagnosis: chest pain Patient was noted to have increased swelling in her legs. She denied having chest pain but did mention some shortness of breath. He is chronically confused due to dementia. Objective - Vital Signs Vital signs: Vital Signs Temp 98 F 10/03/19 12:00 Pulse 84 10/03/19 15:00 Resp 21 10/03/19 15:00 BP 119/76 10/03/19 15:00 Pulse Ox 90 L 10/03/19 15:00 Intake & Output 10/02/19 10/03/19 10/03/19 18:59 06:59 18:59 Intake Total 397 375 550 Output Total 251 0 Balance 397 124 550 Weight 68.039 kg 68.6 kg Intake: IV 397 375 Sodium Chloride 0.9% 1, 75 375 000 ml @ 75 mls/hr IV . [id number] [facility] Rx#:[id number] Oral 550 Output: Urine 250 0 Stool 1 Other: Voiding Method Diaper Diaper # Voids 0 1 1 - Exam General: no distress, appears at stated age, normal weight Derm: no unusual rashes/lesions no unusual ecchymoses, warm, dry Head: atraumatic, normocephalic, symmetric Eyes: lateral deviation left eye, no lid lag, anicteric sclera, pupils equal round reactive to light ENT: Nose and ears atraumatic, no thrush, no pharyngeal erythema Neck: No thyromegaly, no cervical lymphadenopathy, trachea midline, supple Mouth: no lip lesion, mucus membranes dry, poor dentition Cardiovascular: S1S2 reg, no murmur, positive posterior tibial pulse bilateral, 1+ edema, capillary refill less than 2 seconds Lungs: Decreased bs bilateral, no rhonchi, no rales , no accessory muscle use Abdominal: soft, nontender to palpation, no guarding, no appreciable organomegaly, normal bowel sounds Ext: no gross muscle atrophy, muscle strength 4 out of 5 in all 4 extremities grossly, no contractures, Neuro: CN II-XI grossly intact, light touch intact all 4 extremities, finger to nose within normal limits, Psych: Alert, oriented, appropriate affect - Labs CBC & Chem 7: 10/03/19 05:38 10/03/19 05:38 Labs: Abnormal Lab Results - Last 24 Hours (Table) 10/02/19 10/02/19 10/02/19 Range/Units 05:25 13:45 18:41 WBC 12.2 H (3.8-10.6) k/uL RBC 6.15 H (3.80-5.40) m/uL Hgb 16.7 H (11.4-16.0) gm/dL Hct 54.2 H (34.0-46.0) % MCHC 30.9 L (31.0-37.0) g/dL Plt Count 596 H (150-450) k/uL Neutrophils # 10.7 H (1.3-7.7) k/uL Lymphocytes # 0.6 L (1.0-4.8) k/uL D-Dimer 0.77 H (<0.60) mg/L FEU Chloride (98-107) mmol/L Carbon Dioxide (22-30) mmol/L BUN (7-17) mg/dL Glucose (74-99) mg/dL Calcium (8.4-10.2) mg/dL Troponin I (0.000-0.034) ng/mL Urine Blood Trace H (Negative) Ur Leukocyte Esterase Small H (Negative) Urine Bacteria Rare H (None) /hpf Urine Mucus Rare H (None) /hpf 10/02/19 10/03/19 10/03/19 Range/Units 18:41 01:13 05:38 WBC (3.8-10.6) k/uL RBC (3.80-5.40) m/uL Hgb (11.4-16.0) gm/dL Hct (34.0-46.0) % MCHC (31.0-37.0) g/dL Plt Count (150-450) k/uL Neutrophils # (1.3-7.7) k/uL Lymphocytes # (1.0-4.8) k/uL D-Dimer (<0.60) mg/L FEU Chloride (98-107) mmol/L Carbon Dioxide (22-30) mmol/L BUN (7-17) mg/dL Glucose (74-99) mg/dL Calcium (8.4-10.2) mg/dL Troponin I 2.690 H* 17.100 H* 20.300 H* (0.000-0.034) ng/mL Urine Blood (Negative) Ur Leukocyte Esterase (Negative) Urine Bacteria (None) /hpf Urine Mucus (None) /hpf 10/03/19 10/03/19 Range/Units 05:38 05:38 WBC 16.7 H (3.8-10.6) k/uL RBC 6.70 H (3.80-5.40) m/uL Hgb 18.7 H (11.4-16.0) gm/dL Hct 58.0 H* (34.0-46.0) % MCHC (31.0-37.0) g/dL Plt Count 684 H (150-450) k/uL Neutrophils # (1.3-7.7) k/uL Lymphocytes # (1.0-4.8) k/uL D-Dimer (<0.60) mg/L FEU Chloride 109 H (98-107) mmol/L Carbon Dioxide 19 L (22-30) mmol/L BUN 19 H (7-17) mg/dL Glucose 133 H (74-99) mg/dL Calcium 10.4 H (8.4-10.2) mg/dL Troponin I (0.000-0.034) ng/mL Urine Blood (Negative) Ur Leukocyte Esterase (Negative) Urine Bacteria (None) /hpf Urine Mucus (None) /hpf Assessment and Plan Plan: STEMI - Cardio recs appreciated: s/p cath recommending medical management - ASA, lipitor, plavix, imdur, lisinopril - no BB due to bradycardia Acute pulmonary edema, 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 Started on Lasix Already on CHF medical therapy Echocardiogram done, reviewed Monitor I's and O's Leukocytosis Chest x-ray revealed no pneumonia- undetermined etiology UA negative for infection Continues to trend HTN - conitnue current meds - follow BP HLD - statin Memory loss - safe and supportive environment Hx of falls - fall precautions - pt evaluation Surrogate decision-maker: Daughter- hi CODE STATUS: full DVT prophylaxis: SCDs Anticipated discharge date: 2-[address]: home A total of 35 minutes was spent on the care of this complex patient more than 50% of the time was spent in counseling and care coordination.
[2019-10-03] MEDS: ATORVASTATIN 40 MG TAB PO SCH (21:51)
[2019-10-04] MEDS ORDERED: HALOPERIDOL LACTATE 5 MG/ML 1 ML VIAL IM STA (00:34)
[2019-10-04 05:47] LABS: Basophils # (A) 0.1 k/uL (0-0.2); Basophils % (A) 0 %; Eosinophils # (A) 0.1 k/uL (0-0.7); Eosinophils % (A) 1 %; HCT 52.6 % (34.0-46.0); HGB 16.7 gm/dL (11.4-16.0); Hypochromasia Slight; Lymphocytes # (A) 0.6 k/uL (1.0-4.8); Lymphocytes % (A) 3 %; MCH 27.2 pg (25.0-35.0); MCHC 31.8 g/dL (31.0-37.0); MCV 85.6 fL (80.0-100.0); Mean Platelet Volume 9.6; Monocytes # (A) 0.9 k/uL (0-1.0); Monocytes % (A) 5 %; Neutrophils # (A) 16.9 k/uL (1.3-7.7); Neutrophils % (A) 90 %; Platelet Count 702 k/uL (150-450); RBC 6.14 m/uL (3.80-5.40); RDW 14.4 % (11.5-15.5); WBC 18.8 k/uL (3.8-10.6)
[2019-10-04 05:57] LABS: Calcium 9.9 mg/dL (8.4-10.2); Magnesium 1.8 mg/dL (1.6-2.3); Phosphorus 3.1 mg/dL (2.5-4.5); Potassium 4.5 mmol/L (3.5-5.1)
[2019-10-04] MEDS ORDERED: Magnesium Replacement Protocol 1 EACH MISC MISCELLANE PRN (06:12)
--- NOTE | 2019-10-04 06:12 | XR ---
EXAMINATION TYPE: XR chest 1V portable DATE OF EXAM: 10/04/2019 HISTORY: chf. REFERENCE: Previous study dated 10/02/2019. FINDINGS: There has been a midline sternotomy. The heart is enlarged. There is vascular congestion and pulmonary edema. This has worsened slightly. I suspect small, bilateral effusions. IMPRESSION: WORSENING CHANGES OF CONGESTIVE HEART FAILURE.
[2019-10-04] MEDS: MAGNESIUM SULFATE-D5W PMX 1 GM in DEXTROSE/WATER 1 100ML.BAG IVPB SCH ×2 (06:57→08:22)
[2019-10-04] MEDS: FAMOTIDINE 20 MG TAB PO SCH (08:37)
[2019-10-04] MEDS: amLODIPine 5 MG TAB PO SCH (08:37)
[2019-10-04] MEDS: ISOSORBIDE MONONITRATE ER 60 MG TAB.ER.24H PO SCH (08:37)
[2019-10-04] MEDS: CLOPIDOGREL 75 MG TAB PO SCH (08:37)
[2019-10-04] MEDS: ASPIRIN 81 MG PO SCH (08:37)
[2019-10-04] MEDS: LISINOPRIL 20 MG TAB PO SCH (08:37)
[2019-10-04] MEDS: SENNOSIDES 8.6 MG TAB PO SCH ×2 (08:38→20:48)
[2019-10-04] MEDS: FUROSEMIDE 10 MG/ML 2 ML VIAL IV SCH ×2 (08:38→20:48)
--- NOTE | 2019-10-04 11:36 | P.PN ---
Progress Note - Text Progress Note Date: 10/04/19 This is a 88-year-old female with history of ischemic heart disease and previous bypass surgery who was admitted with the lateral wall myocardial infarction. Cardiac catheterization showed total occlusion of the graft to the OM branch. Patient was advised in maximal medical therapy. Echo showed an ejection fraction about 40%. There is also evidence of moderate to severe aortic stenosis. Chest x-ray shows consistent findings of CHF. Patient however seemed to be comfortable. Denies any chest pain or shortness of breath. Examination of the lungs show a few rales rhonchi. There is systolic murmur in the aortic area. Her blood pressure is running low. I'm going to discontinue amlodipine and start the patient on Coreg 3.125 mg by mouth twice a day. We'll continue IV Lasix. Patient to be transferred to [facility] care. Physical examination: Reveals elderly female who is alert, oriented. Doesn't appear to be in acute distress. Blood pressure 100 systolic. Heart rate in the 90s. Lungs show scattered rhonchi. Heart revealed systolic murmur in the aortic area. Final impression #1: Acute lateral wall microinfarction. #2. Ischemic cardiac myopathy #3. Acute systolic congestive heart failure #4. Status post CABG Plan: I will start her on Coreg. Discontinue amlodipine. Continue IV Lasix and test of the medication. Prognosis is guarded
--- NOTE | 2019-10-04 12:30 | P.PN ---
Subjective Progress Note Date: 10/04/19 Principal diagnosis: chest pain Patient is doing okay, no chest pain or shortness of breath. No overnight issues. Objective - Vital Signs Vital signs: Vital Signs Temp 97.5 F L 10/04/19 08:00 Pulse 75 10/04/19 11:00 Resp 25 H 10/04/19 11:00 BP 114/68 10/04/19 11:00 Pulse Ox 96 10/04/19 10:00 Intake & Output 10/03/19 10/04/19 10/04/19 18:59 06:59 18:59 Intake Total 850 300 626 Output Total 0 342 250 Balance 850 -42 376 Weight 66.7 kg Intake: Intake, IV Titration 200 Amount Magnesium Sulfate-D5w Pmx 200 1 gm In Dextrose/Water 1 100ml.bag @ 100 mls/hr IVPB Q1H [facility] Rx#: [id number] Oral 850 300 426 Output: Urine 0 340 250 Stool 2 Other: Voiding Method Diaper Diaper # Voids 1 1 - Exam General: no distress, appears at stated age, normal weight Derm: no unusual rashes/lesions no unusual ecchymoses, warm, dry Head: atraumatic, normocephalic, symmetric Eyes: lateral deviation left eye, no lid lag, anicteric sclera, pupils equal rou nd reactive to light ENT: Nose and ears atraumatic, no thrush, no pharyngeal erythema Neck: No thyromegaly, no cervical lymphadenopathy, trachea midline, supple Mouth: no lip lesion, mucus membranes dry, poor dentition Cardiovascular: S1S2 reg, no murmur, positive posterior tibial pulse bilateral, 1+ edema, capillary refill less than 2 seconds Lungs: Decreased bs bilateral, no rhonchi, no rales , no accessory muscle use Abdominal: soft, nontender to palpation, no guarding, no appreciable organ omegaly, normal bowel sounds Ext: no gross muscle atrophy, muscle strength 4 out of 5 in all 4 extremities grossly, no contractures, Neuro: CN II-XI grossly intact, light touch intact all 4 extremities, finger to nose within normal limits, Psych: Alert, oriented, appropriate affect - Labs CBC & Chem 7: 10/04/19 05:18 10/04/19 05:18 Labs: Abnormal Lab Results - Last 24 Hours (Table) 10/04/19 10/04/19 Range/Units 05:18 05:18 WBC 18.8 H (3.8-10.6) k/uL RBC 6.14 H (3.80-5.40) m/uL Hgb 16.7 H (11.4-16.0) gm/dL Hct 52.6 H (34.0-46.0) % Plt Count 702 H (150-450) k/uL Neutrophils # 16.9 H (1.3-7.7) k/uL Lymphocytes # 0.6 L (1.0-4.8) k/uL BUN 24 H (7-17) mg/dL Glucose 183 H (74-99) mg/dL Assessment and Plan Plan: STEMI - Cardio recs appreciated: s/p cath recommending medical management - ASA, lipitor, plavix, imdur, lisinopril - Started on Coreg today by cardiology - Discussed with cardiology, will transfer to selective care Acute pulmonary edema, 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 HTN - conitnue current meds - follow BP HLD - statin Memory loss - safe and supportive environment Hx of falls - fall precautions - pt evaluation Surrogate decision-maker: Nate do CODE STATUS: full DVT prophylaxis: SCDs Anticipated discharge date: 2-[address]: home A total of 35 minutes was spent on the care of this complex patient more than 50% of the time was spent in counseling and care coordination.
[2019-10-04] MEDS: CARVEDILOL 3.125 MG TAB PO SCH (20:48)
[2019-10-04] MEDS: ATORVASTATIN 40 MG TAB PO SCH (20:48)
[2019-10-05 04:53] LABS: Basophils # (A) 0.1 k/uL (0-0.2); Basophils % (A) 1 %; Eosinophils # (A) 0.2 k/uL (0-0.7); Eosinophils % (A) 1 %; HCT 48.5 % (34.0-46.0); HGB 15.6 gm/dL (11.4-16.0); Hypochromasia Slight; Lymphocytes # (A) 0.8 k/uL (1.0-4.8); Lymphocytes % (A) 5 %; MCH 27.5 pg (25.0-35.0); MCHC 32.1 g/dL (31.0-37.0); MCV 85.7 fL (80.0-100.0); Mean Platelet Volume 9.7; Monocytes # (A) 0.8 k/uL (0-1.0); Monocytes % (A) 5 %; Neutrophils # (A) 14.1 k/uL (1.3-7.7); Neutrophils % (A) 87 %; Platelet Count 619 k/uL (150-450); RBC 5.66 m/uL (3.80-5.40); RDW 14.2 % (11.5-15.5); WBC 16.2 k/uL (3.8-10.6)
[2019-10-05 05:02] LABS: Albumin 3.1 g/dL (3.5-5.0); Calcium 9.7 mg/dL (8.4-10.2); Magnesium 2.3 mg/dL (1.6-2.3); Total Bilirubin 1.2 mg/dL (0.2-1.3); Total Protein 5.9 g/dL (6.3-8.2)
[2019-10-05] MEDS: CARVEDILOL 3.125 MG TAB PO SCH ×2 (09:58→17:06)
[2019-10-05] MEDS: FUROSEMIDE 10 MG/ML 2 ML VIAL IV SCH ×2 (09:58→22:10)
[2019-10-05] MEDS: CLOPIDOGREL 75 MG TAB PO SCH (09:58)
[2019-10-05] MEDS: ISOSORBIDE MONONITRATE ER 60 MG TAB.ER.24H PO SCH (09:58)
[2019-10-05] MEDS: ASPIRIN 81 MG PO SCH (09:58)
[2019-10-05] MEDS: FAMOTIDINE 20 MG TAB PO SCH (09:58)
[2019-10-05 11:35] VITALS: BMI 23.7
--- NOTE | 2019-10-05 12:02 | P.PN ---
Subjective Progress Note Date: 10/05/19 This is a 88-year-old female with history of ischemic heart disease with previous bypass surgery who was admitted with the lateral wall myocardial infarction. Patient had a cardiac catheterization and was found to have significantly diseased graft and maximum medical therapy was advised. No intervention was taken up. Her LV function showed an ejection fraction of 40%. Patient is lying flat in bed without any chest pain or shortness of breath. Vital signs are stable but white count is elevated but scamming down. Doesn't seem to be in acute distress. Patient is being transferred to telemetry unit. Increase activity as tolerated. Possible discharge within next 24-48 hours Objective - Vital Signs Vital signs: Vital Signs Temp 99 F 10/05/19 11:53 Pulse 62 10/05/19 11:53 Resp 22 10/05/19 11:53 BP 102/55 10/05/19 11:53 Pulse Ox 95 10/05/19 11:53 Intake & Output 10/04/19 10/05/19 10/05/19 18:59 06:59 18:59 Intake Total 876 Output Total 350 300 Balance 526 -300 Weight 66.7 kg 66.7 kg Intake: Intake, IV Titration 200 Amount Magnesium Sulfate-D5w Pmx 200 1 gm In Dextrose/Water 1 100ml.bag @ 100 mls/hr IVPB Q1H [facility] Rx#: [id number] Oral 676 Output: Urine 350 300 Other: Voiding Method Diaper - Exam GENERAL EXAM: Patient is alert and oriented and doesn't appear to be in any acute distress HEENT: Normocephalic. Normal reaction of pupils, equal size, normal range of extraocular motion. No erythema or exudates in the throat. NECK: No masses, no nuchal rigidity. CHEST: No chest wall deformity. LUNGS: Equal air entry with no crackles or wheeze. HEART: S1 and S2 normal with no audible mumurs or gallops. Regular rhythm, femorals equal on both sides.. ABDOMEN: No hepatosplenomegaly, normal bowel sounds, no guarding or rigidity. SKIN: No rashes CENTRAL NERVOUS SYSTEM: No focal deficits. EXTREMITIES: No cyanosis, clubbing or edema. - Labs CBC & Chem 7: 10/05/19 04:39 10/05/19 04:39 Labs: Abnormal Lab Results - Last 24 Hours (Table) 10/05/19 10/05/19 Range/Units 04:39 04:39 WBC 16.2 H (3.8-10.6) k/uL RBC 5.66 H (3.80-5.40) m/uL Hct 48.5 H (34.0-46.0) % Plt Count 619 H (150-450) k/uL Neutrophils # 14.1 H (1.3-7.7) k/uL Lymphocytes # 0.8 L (1.0-4.8) k/uL BUN 34 H (7-17) mg/dL Glucose 139 H (74-99) mg/dL AST 109 H (14-36) U/L Total Protein 5.9 L (6.3-8.2) g/dL Albumin 3.1 L (3.5-5.0) g/dL Assessment and Plan (1) STEMI (ST elevation myocardial infarction) Current Visit: Yes Status: Acute Code(s): I21.3 - ST ELEVATION (STEMI) MYOCARDIAL INFARCTION OF [facility] SITE SNOMED Code(s): 71594852 (2) Acute systolic (congestive) heart failure Current Visit: Yes Status: Acute Code(s): I50.21 - ACUTE SYSTOLIC (CONGESTIVE) HEART FAILURE SNOMED Code(s): 299653371 (3) History of coronary artery bypass graft Current Visit: Yes Status: Acute Code(s): Z95.1 - PRESENCE OF AORTOCORONARY BYPASS GRAFT SNOMED Code(s): 066509917 Plan: Patient is clinically stable. Increase activity. Possible discharge within ne xt 24-48 hours
[2019-10-05] MEDS: SENNOSIDES 8.6 MG TAB PO SCH ×2 (12:10→22:10)
[2019-10-05] MEDS: LISINOPRIL 20 MG TAB PO SCH (15:11)
[2019-10-05] MEDS: ATORVASTATIN 40 MG TAB PO SCH (22:10)
[2019-10-06 06:11] VITALS: RESP 18; TEMP 97.7
[2019-10-06] MEDS: CARVEDILOL 3.125 MG TAB PO SCH (06:35)
[2019-10-06 08:19] VITALS: BP 116/57; PULSE 70
[2019-10-06] MEDS: FAMOTIDINE 20 MG TAB PO SCH (08:52)
[2019-10-06] MEDS: SENNOSIDES 8.6 MG TAB PO SCH (08:52)
[2019-10-06] MEDS: CLOPIDOGREL 75 MG TAB PO SCH (08:52)
[2019-10-06] MEDS: ASPIRIN 81 MG PO SCH (08:52)
[2019-10-06] MEDS: FUROSEMIDE 10 MG/ML 2 ML VIAL IV SCH (08:52)
[2019-10-06] MEDS: LISINOPRIL 20 MG TAB PO SCH (08:52)
[2019-10-06] MEDS: ISOSORBIDE MONONITRATE ER 60 MG TAB.ER.24H PO SCH (08:52)
--- NOTE | 2019-10-06 12:26 | CDI ---
Documentation Clarification Form Date: 10/06/2019 12:16:42 PM From: Elin PoolLazoAMARILIS murillo, CCDS Admit Date: 10/02/2019 01:53:00 PM Patient Name: Kathy Xiong Visit Number: [id number] Discharge Date: ATTENTION: The Clinical Documentation Specialists (CDI) and [facility] Coding Staff appreciate your assistance in clarifying documentation. Please respond to the clarification below the line at the bottom and electronically sign. The CDI & [facility] Coding staff will review the response and follow-up if needed. Please note: Queries are made part of the Legal Health Record. If you have any questions, please contact the author of this message via ITS. Dr. Soo Adler or Dr. 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 History/Risk Factors: Hypertension, CAD status post CABG, Hyperlipidemia. Clinical Indicators: Presented with chest pain, diagnosed with STEMI, taken to the poultry farm laborer, medical treatment advised. VS: T 97.3*, P 51*, R 20, BP 164/77^, PO 99 RA - 87 2Lnc. BNP: 2230 Echocardiogram Results 10/03: Systolic function mild-moderately impaired w/EF 40-45%, Increased Lap Grade II diastolic Dysfunction. Moderate aortic stenosis, Mod - severe MR, Mild-mod TR, mild-mod pulmonary hypertension. Chest X Ray: New pulmonary edema consistent with acute heart failure. Treatment: po ASA, IV Heparin, po Lasix, IV Lasix, IM Haldol x1, IV MagSulf In your professional opinion, can you please clarify the acuity and type of CHF if known? Systolic Heart Failure: o Acute o Chronic o Acute on Chronic Diastolic Heart Failure: o Acute o Chronic o Acute on Chronic Systolic & Diastolic Heart Failure: o Acute o Chronic o Acute on Chronic Heart Failure Unable to Determine Other, please specify Please review chart discharge summary MTDD
--- NOTE | 2019-10-06 12:52 | P.PN ---
Subjective Progress Note Date: 10/06/19 This is a 88-year-old female with history of ischemic heart disease with previous bypass surgery who was admitted with the lateral wall myocardial infarction. Patient had a cardiac catheterization and was found to have significantly diseased graft and maximum medical therapy was advised. No intervention was taken up. Her LV function showed an ejection fraction of 40%. patient was seen and examined this morning, resting comfortably in bed, does not appear to be short of breath, she denies any chest discomfort. Blood pressure 116/57 with a heart rate in the 70s.she is currently on aspirin 81 mg daily, Lipitor 40 mg daily, Coreg 3.125 mg twice a day, Plavix 75 mg daily, IV Lasix 20 twice a day, Imdur 60 daily, lisinopril 20 daily. We'll discontinue the IV Lasix today and put her on oral diuretics. Plan for possible discharge home for rehab in the next 24-48 hours. Objective - Vital Signs Vital signs: Vital Signs Temp 97.7 F 10/06/19 08:00 Pulse 70 10/06/19 08:00 Resp 18 10/06/19 08:00 BP 116/57 10/06/19 08:00 Pulse Ox 95 10/06/19 08:00 Intake & Output 10/05/19 10/06/19 10/06/19 18:59 06:59 18:59 Intake Total 300 Output Total 200 300 Balance 100 -300 Weight 66.7 kg 69.5 kg Intake: Oral 300 Output: Urine 200 300 Other: Voiding Method Diaper # Voids 2 2 - Exam GENERAL EXAM: Patient is alert and oriented and doesn't appear to be in any acute distress HEENT: Normocephalic. Normal reaction of pupils, equal size, normal range of extraocular motion. No erythema or exudates in the throat. NECK: No masses, no nuchal rigidity. CHEST: No chest wall deformity. LUNGS: Equal air entry with no crackles or wheeze. HEART: S1 and S2 normal with no audible mumurs or gallops. Regular rhythm, femorals equal on both sides.. ABDOMEN: No hepatosplenomegaly, normal bowel sounds, no guarding or rigidity. SKIN: No rashes CENTRAL NERVOUS SYSTEM: No focal deficits. EXTREMITIES: No cyanosis, clubbing or edema. - Labs CBC & Chem 7: 10/05/19 04:39 10/05/19 04:39 Assessment and Plan Plan: assessment and plan #[address] elevation PR, status post cardiac catheterization, medical therapy advised #2 systolic congestive heart failure acute on chronic #3 known coronary artery disease with prior bypass #4 hypertension #5 hyperlipidemia plan We will discontinue the IV Lasix today, continue the rest of the patient's medication. Plan for possible discharge home or transfer to rehab within the next 24 hours. DNP note has been reviewed, I agree with a documented findings and plan of care. Patient was seen and examined.
--- NOTE | 2019-10-06 13:32 | XR ---
EXAMINATION TYPE: XR chest 1V DATE OF EXAM: 10/06/2019 COMPARISON: Prior chest x-ray 10/04/2019 HISTORY: Congestive heart failure TECHNIQUE: Single frontal view of the chest is obtained. FINDINGS: Findings are similar to prior exam. Patient is post median sternotomy and rotated. The hea rt is enlarged. Aorta is dense. IMPRESSION: Findings consistent with congestive heart failure.
[2019-10-06] MEDS ORDERED: FUROSEMIDE 10 MG/ML 4 ML VIAL IV STA (15:14)
--- NOTE | 2019-10-06 15:15 | P.DS ---
Providers Date of admission: 10/02/19 13:53 Expected date of discharge: 10/06/19 Attending physician: Yuni Tamayo DO Consults: 10/02/19 18:54 Consult Physician Routine Consulting Provider: Tristan Josue Consult Reason/Comments: chest pain Do you want consulting provider notified?: Yes Primary care physician: Kirk Haddad Hospital Course: discharge diagnoses ST elevation [place] acute combined Systolic end-diastolic CHF exacerbation History of coronary artery bypass graft hyperlipidemia ischemic cardiomyopathy moderate aortic stenosis moderate to severe mitral regurgitation Mild to moderate TR Mild to moderate pulmonary hypertension Hospital course the patient is a 88 her old female that was admitted with an acute coronary syndrome with ST elevation [place] after presenting to the ER with chest pain, the workup with troponins showed a gradual rise up to 20.3, EKG ST elevation in leads 1 and aVL. cardiology was consulted and the patient was taken to the electronic lab technician which showed significant disease graft recommend its for optimizing medical management. the patient was started on IV Lasix, initiated on dual antiplatelet therapy with Plavix and aspirin, continued on Lipitor, and started on beta tyrone therapy with Coreg 3.25mg PO BID. echocardiogram performed was consistent with a grade 2 diastolic dysfunction and EF of 40-45% with noted valvular abnormalities including moderate aortic stenosis, moderate to severe MR, [id number] TR, and mild to moderate pulmonary hypertension. Patient was placed on supplemental oxygen on high flow up to 6 L. We'll wean her back down to as low as 5L., the patient was cleared medically by cardiology recommended for discharge. Discharged in stable condition needing 5 L via nasal cannula oxygen. discharge process took approximately 35 minutes Focused exam Cardiovascular: Regular rate and rhythm, Patient Condition at Discharge: Fair Plan - Discharge Summary Discharge Rx Participant: Yes New Discharge Prescriptions: New Furosemide [Lasix] 40 mg PO BID@0900,1600 #60 tab Clopidogrel [Plavix] 75 mg PO DAILY #30 tab Continue Sennosides [Senna] 8.6 mg PO BID Famotidine [Pepcid] 20 mg PO DAILY Atorvastatin [Lipitor] 40 mg PO HS Metoprolol Tartrate [Lopressor] 25 mg PO DAILY Nitroglycerin Sl Tabs [Nitrostat] 0.4 mg SUBLINGUAL Q5M PRN PRN Reason: Chest Pain Aspirin 81 mg PO DAILY chew Lisinopril [Zestril] 20 mg PO DAILY tab Isosorbide Mononitrate ER [Imdur] 60 mg PO DAILY #60 tab.er.24h amLODIPine [Norvasc] 5 mg PO DAILY Furosemide [Lasix] 20 mg PO BID@0900,1600 Discharge Medication List Atorvastatin [Lipitor] 40 mg PO HS 03/11/18 [History] Famotidine [Pepcid] 20 mg PO DAILY 03/11/18 [History] Metoprolol Tartrate [Lopressor] 25 mg PO DAILY 03/11/18 [History] Sennosides [Senna] 8.6 mg PO BID 03/11/18 [History] Nitroglycerin Sl Tabs [Nitrostat] 0.4 mg SUBLINGUAL Q5M PRN 03/12/18 [History] Aspirin 81 mg PO DAILY chew 03/14/18 [Rx] Lisinopril [Zestril] 20 mg PO DAILY tab 03/14/18 [Rx] Isosorbide Mononitrate ER [Imdur] 60 mg PO DAILY #60 tab.er.24h 07/19/18 [Rx] Furosemide [Lasix] 20 mg PO BID@0900,1600 10/02/19 [History] amLODIPine [Norvasc] 5 mg PO DAILY 10/02/19 [History] Clopidogrel [Plavix] 75 mg PO DAILY #30 tab 10/06/19 [Rx] Furosemide [Lasix] 40 mg PO BID@0900,1600 #60 tab 10/06/19 [Rx] Follow up Appointment(s)/Referral(s): Kirk Haddad MD [Primary Care Provider] - 1-2 days
[2019-10-06] MEDS ORDERED: FUROSEMIDE 40 MG TAB PO SCH (16:00)
== END 2019-10-06 17:25 | DRG 280 ==
LOC: EC 12:55 → 2SICU 13:53 → 3SCARD 10-05 09:22
PROVIDERS: ADMIT Internal Medicine; ATTEND Internal Medicine
PROC: B2131ZZ Fluoroscopy of Multiple Coronary Artery Bypass Grafts using Low Osmolar Contrast (ICD-10-PCS; 2019-10-02)
PROC: B2181ZZ Fluoroscopy of Left Internal Mammary Bypass Graft using Low Osmolar Contrast (ICD-10-PCS; 2019-10-02)
PROC: B2111ZZ Fluoroscopy of Multiple Coronary Arteries using Low Osmolar Contrast (ICD-10-PCS; principal; 2019-10-02 13:50)
DX: I21.29 ST elevation (STEMI) myocardial infarction involving other sites (principal); I50.43 Acute on chronic combined systolic (congestive) and diastolic (congestive) heart failure; I27.20 Pulmonary hypertension, unspecified; F03.90 Unspecified dementia, unspecified severity, without behavioral disturbance, psychotic disturbance, mood disturbance, and anxiety; I11.0 Hypertensive heart disease with heart failure; I25.5 Ischemic cardiomyopathy; I08.3 Combined rheumatic disorders of mitral, aortic and tricuspid valves; I25.10 Atherosclerotic heart disease of native coronary artery without angina pectoris; E78.5 Hyperlipidemia, unspecified; R00.1 Bradycardia, unspecified; D72.829 Elevated white blood cell count, unspecified; I25.2 Old myocardial infarction; Z91.81 History of falling; Z79.82 Long term (current) use of aspirin; Z79.899 Other long term (current) drug therapy; Z95.1 Presence of aortocoronary bypass graft; Z90.49 Acquired absence of other specified parts of digestive tract; Z96.643 Presence of artificial hip joint, bilateral
CPT/HCPCS: 36415; 71045; 80048; 80053; 81001; 82550; 82553; 83690; 83735; 83880; 84100; 84484; 85025; 85027; 85379; 85610; 85730; 93005; 93308; 93459; 99285

== ENCOUNTER 2019-11-14 17:04 | Emergency (ER) | payer MEDICARE, BC ==
--- NOTE | 2019-11-14 17:00 | US ---
EXAMINATION TYPE: US venous doppler duplex LE BI DATE OF EXAM: 11/14/2019 4:39 PM COMPARISON: NONE CLINICAL HISTORY: M79.662 Pain in left lower leg. SIDE PERFORMED: TECHNIQUE: The lower extremity deep venous system is examined utilizing real time linear array sonog marvin with graded compression, doppler sonography and color-flow sonography. VESSELS IMAGED: Common Femoral Vein Deep Femoral Vein Greater Saphenous Vein * Femoral Vein Popliteal Vein Small Saphenous Vein * Proximal Calf Veins (* superficial vessels) Right Leg: Positive for occluding DVT in right Popliteal Vein and in one of 2 upper calf veins. Left Leg: Negative for DVT Tech findings called to TERESA Shaw, at [facility] at exam's end. Lalitha abreu ise patient to be treated in . IMPRESSION: There is evidence of acute deep venous thrombosis in the right leg in the popliteal and tibial veins. Normal left leg duplex venous sonogram.
[2019-11-14 17:12] VITALS: BP 142/73; PULSE 61; RESP 18; TEMP 97.5
[2019-11-14] MEDS ORDERED: ENOXAPARIN 60 MG/0.6 ML SYRINGE SQ STA (17:58)
[2019-11-14 18:02] LABS: Basophils # (A) 0.2 k/uL (0-0.2); Basophils % (A) 3 %; Eosinophils # (A) 0.3 k/uL (0-0.7); Eosinophils % (A) 4 %; HGB 16.6 gm/dL (11.4-16.0); Lymphocytes # (A) 0.8 k/uL (1.0-4.8); Lymphocytes % (A) 11 %; MCH 27.1 pg (25.0-35.0); MCHC 31.3 g/dL (31.0-37.0); MCV 86.8 fL (80.0-100.0); Mean Platelet Volume 9.8; Monocytes # (A) 0.6 k/uL (0-1.0); Monocytes % (A) 8 %; Neutrophils # (A) 5.3 k/uL (1.3-7.7); Neutrophils % (A) 72 %; Platelet Count 598 k/uL (150-450); RDW 15.2 % (11.5-15.5); WBC 7.4 k/uL (3.8-10.6)
[2019-11-14 18:12] LABS: Albumin 3.8 g/dL (3.5-5.0); Calcium 9.7 mg/dL (8.4-10.2); Potassium 4.1 mmol/L (3.5-5.1); Total Bilirubin 0.9 mg/dL (0.2-1.3)
[2019-11-14 18:13] LABS: INR 1.1 (<1.2); Partial Thromboplastin Time 27.1 sec (22.0-30.0); Prothrombin Time 11.3 sec (9.0-12.0)
--- NOTE | 2019-11-14 18:29 | ED ---
General Adult HPI - General Source: patient, family, RN notes reviewed, old records reviewed Mode of arrival: ambulatory Limitations: no limitations <Edward Sanchez - Last Filed: 11/14/19 19:40> <Deven Lund - Last Filed: 11/14/19 20:30> - General Chief complaint: Extremity Problem,Nontraumatic Stated complaint: Poss dvt Time Seen by Provider: 11/14/19 17:26 - History of Present Illness Initial comments: 89-year-old female patient past medical history of dementia, coronary artery disease, presents to ED chief complaint of right lower extremity DVT. Patient was at a regular guardian ad litem appointment when he noticed that her lower extremities were slightly cool to the touch bilaterally. He ordered a ultra sound of bilateral lower extremities. This did display a lower extremity DVT. Patient denies any complaints. Denies any chest pain or shortness of breath. Systemic: Pt denies fatigue, fever/chills, rash. Pt denies weakness, night sweats, weight loss. Neuro: Pt denies headache, visual disturbances, syncope or pre-syncope. HEENT: Pt denies ocular discharge or irritation, otalgia, rhinorrhea, ph aryngitis or notable lymphadenopathy. Cardiopulmonary: Pt denies chest pain, SOB, heart palpitations, dyspnea on exertion. Abdominal/GI: Pt denies abdominal pain, n/v/d. : Pt denies dysuria, burning w/ urination, frequency/urgency. Denies new onset urinary or bowel incontinence. MSK: Pt denies myalgia, loss of strength or function in extremities. Neuro: Pt denies new onset weakness, paresthesias. (Edward Sanchez) - Related Data Home Medications Medication Instructions Recorded Confirmed Atorvastatin [Lipitor] 40 mg PO HS 03/11/18 10/02/19 Famotidine [Pepcid] 20 mg PO DAILY 03/11/18 10/02/19 Sennosides [Senna] 8.6 mg PO BID 03/11/18 10/02/19 Nitroglycerin Sl Tabs [Nitrostat] 0.4 mg SUBLINGUAL Q5M PRN 03/12/18 10/02/19 Previous Rx's Medication Instructions Recorded Aspirin 81 mg PO DAILY chew 03/14/18 Lisinopril [Zestril] 20 mg PO DAILY tab 03/14/18 Isosorbide Mononitrate ER [Imdur] 60 mg PO DAILY #60 tab.er.24h 07/19/18 Carvedilol [Coreg] 3.125 mg PO BID-W/MEALS #60 tab 10/06/19 Clopidogrel [Plavix] 75 mg PO DAILY #30 tab 10/06/19 Furosemide [Lasix] 40 mg PO BID@0900,1600 #60 tab 10/06/19 Isosorbide Mononitrate ER [Imdur] 60 mg PO DAILY #30 tab.er.24h 10/06/19 Apixaban [Eliquis Starter Pack 0 mg PO DIRECTED 30 Days #1 pack 11/14/19 (for VTE)] Allergies Allergy/AdvReac Type Severity Reaction Status Date / Time No Known Allergies Allergy Verified 11/14/19 17:12 Review of Systems ROS Other: All systems not noted in ROS Statement are negative. <Edward Sanchez - Last Filed: 11/14/19 19:40> ROS Other: All systems not noted in ROS Statement are negative. <Deven Lund - Last Filed: 11/14/19 20:30> ROS Statement: Those systems with pertinent positive or pertinent negative responses have been documented in the HPI. Past Medical History Past Medical History: Coronary Artery Disease (CAD), Chest Pain / Angina, Dementia, Hyperlipidemia, Hypertension Additional Past Medical History / Comment(s): memory deficits History of Any Multi-Drug Resistant Organisms: None Reported Past Surgical History: Coronary Bypass/CABG Additional Past Surgical History / Comment(s): CABG 2008, yudy, b/l MP Past Anesthesia/Blood Transfusion Reactions: No Reported Reaction Past Psychological History: No Psychological Hx Reported Smoking Status: Never smoker Past Alcohol Use History: None Reported Past Drug Use History: None Reported - Past Family History Mother Additional Family Medical History / Comment(s): no coronary artery disease <Edward Sanchez - Last Filed: 11/14/19 19:40> General Exam Limitations: no limitations <Edward Sanchez - Last Filed: 11/14/19 19:40> - General Exam Comments Initial Comments: Constitutional: NAD, AOX3, Pt has pleasant affect. HEENT: NC/AT, trachea midline, neck supple, no lymphadenopathy. Posterior pharynx non erythematous, without exudates. External ears appear normal, without discharge. Mucous membranes moist. Eyes PERRLA, EOM intact. There is no scleral icterus. No pallor noted. Cardiopulmonary: RRR, no murmurs, rubs or gallops, no JVD noted. Lungs CTAB in anterior and posterior botello. No peripheral edema. Abdominal exam: Abdomen soft and non-distended. Abdomen non-tender to palpation in all 4 quadrants. Bowel sounds active in LLQ. No hepatosplenomegaly. No ecchymosis Neuro: CN II-XII grossly intact. No nuchal rigidity. No raccon eyes, no moore sign, no hemotympanum. No cervical spinal tenderness. MSK: No posterior calf tenderness bilaterally, homans sign negative bilaterally. Posterior tibialis and radial pulse +2 bilaterally. Sensation intact in upper and lower extremities. Full active ROM in upper and lower extremities, 5/5 stregnth. (Edward Sanchez) Course <Deven Lund - Last Filed: 11/14/19 20:30> Vital Signs 11/14/19 17:09 Temperature 97.5 F L Pulse Rate 61 Respiratory 18 Rate Blood Pressure 142/73 O2 Sat by Pulse 99 Oximetry - Reevaluation(s) Reevaluation #1: 11/14/19 20:29 PA supervision: I proceeded [id number] evaluation of this patient she does present from the guardian ad litem's office with complaints of edema to lower extremities and is here for ultrasound of the right lower extremity which was positive for DVT. Patient is hemodynamically stable asymptomatic otherwise she is a candidate for outpatient treatment. I did discuss the case with who does concur. Patient will be started on Eliquis. I did discuss this with both patient and her son was present. Patient has no chest pain she is awake alert oriented at this time with no Tenderness no evidence of any neurovascular compromise to the lower extremity. (Deven Lund) Medical Decision Making - Lab Data Result diagrams: 11/14/19 17:50 11/14/19 17:50 - EKG Data -: EKG Interpreted by Me (and Dr. Lund) <Edward Sanchez - Last Filed: 11/14/19 19:40> - Lab Data Result diagrams: 11/14/19 17:50 11/14/19 17:50 <Deven Lund - Last Filed: 11/14/19 20:30> - Medical Decision Making 89-year-old female patient past medical history of dementia, coronary artery disease, presents to ED chief complaint of right lower extremity DVT. Patient was at a regular guardian ad litem appointment when he noticed that her lower extremities were slightly cool to the touch bilaterally. He ordered a ultrasound of bilateral lower extremities. This did display a lower extremity DVT. Patient denies any complaints. Denies any chest pain or shortness of breath. Patient will signs stable, afebrile. Physical exam displayed acute pathology. Laboratory investigations are obtained are non-impressive. Ultrasound was reviewed did display occluding DVT in right popliteal and one of the upper calf veins. Patient was administered one shot of Lovenox in ED. Will be discharged with OUTPATIENT follow-up with primary care provider in cardiology. Patient does not have any contraindications to anticoagulation. Will return to ER if condition worsens. Case discussed the patient seen by Dr. Lund. (Edward Sanchez) - Lab Data Lab Results 11/14/19 11/14/19 11/14/19 Range/Units 17:50 17:50 17:50 WBC 7.4 (3.8-10.6) k/uL RBC 6.10 H (3.80-5.40) m/uL Hgb 16.6 H (11.4-16.0) gm/dL Hct 53.0 H (34.0-46.0) % MCV 86.8 (80.0-100.0) fL MCH 27.1 (25.0-35.0) pg MCHC 31.3 (31.0-37.0) g/dL RDW 15.2 (11.5-15.5) % Plt Count 598 H (150-450) k/uL Neutrophils % 72 % Lymphocytes % 11 % Monocytes % 8 % Eosinophils % 4 % Basophils % 3 % Neutrophils # 5.3 (1.3-7.7) k/uL Lymphocytes # 0.8 L (1.0-4.8) k/uL Monocytes # 0.6 (0-1.0) k/uL Eosinophils # 0.3 (0-0.7) k/uL Basophils # 0.2 (0-0.2) k/uL PT 11.3 (9.0-12.0) sec INR 1.1 (<1.2) APTT 27.1 (22.0-30.0) sec Sodium 141 (137-145) mmol/L Potassium 4.1 (3.5-5.1) mmol/L Chloride 105 (98-107) mmol/L Carbon Dioxide 29 (22-30) mmol/L Anion Gap 7 mmol/L BUN 17 (7-17) mg/dL Creatinine 0.79 (0.52-1.04) mg/dL Est GFR (CKD-EPI)AfAm 79 (>60 ml/min/1.73 sqM) Est GFR (CKD-EPI)NonAf 68 (>60 ml/min/1.73 sqM) Glucose 96 (74-99) mg/dL Calcium 9.7 (8.4-10.2) mg/dL Total Bilirubin 0.9 (0.2-1.3) mg/dL AST 22 (14-36) U/L ALT 10 (4-34) U/L Alkaline Phosphatase 79 (38-126) U/L Total Protein 7.0 (6.3-8.2) g/dL Albumin 3.8 (3.5-5.0) g/dL - EKG Data EKG Comments: Ventricular rate 58, VA interval 190, QRS 108, QT/QTc 492/42. Sinus bradycardia, possible left atrial enlargement, left axis deviation. No Concern for acute ischemia at this time. (Edward Sanchez) Disposition Is patient prescribed a controlled substance at d/c from ED?: No <Edwadr Sanchez - Last Filed: 11/14/19 19:40> <Deven Lund - Last Filed: 11/14/19 20:30> Clinical Impression: Deep vein thrombosis (DVT) of lower extremity Disposition: HOME SELF-CARE Condition: Stable Instructions (If sedation given, give patient instructions): Deep Vein Thrombosis (ED) Additional Instructions: Follow-up with primary care provider tomorrow. Patient was given 1 dose of eliquis in emergency department. This is to be taken tomorrow morning. Begin eliquis as prescribed. Return to ER if condition worsens in any way. Prescriptions: Apixaban [Eliquis Starter Pack (for VTE)] 0 mg PO DIRECTED 30 Days #1 pack Referrals: Kirk Haddad MD [Primary Care Provider] - 1-2 days
[2019-11-14] MEDS ORDERED: APIXABAN 5 MG TAB PO STA (19:36)
== END 2019-11-14 19:50 | disposition home or self-care (01) ==
LOC: EC 17:04
DX: I82.401 Acute embolism and thrombosis of unspecified deep veins of right lower extremity (principal); F03.90 Unspecified dementia, unspecified severity, without behavioral disturbance, psychotic disturbance, mood disturbance, and anxiety; I25.119 Atherosclerotic heart disease of native coronary artery with unspecified angina pectoris; E78.5 Hyperlipidemia, unspecified; I10 Essential (primary) hypertension; Z95.1 Presence of aortocoronary bypass graft; Z79.899 Other long term (current) drug therapy
CPT/HCPCS: 36415; 93005; 80053; 85025; 85610; 85730; 93970; 99284; 96372; J1650